=== PATIENT | female | born 1950 | race Caucasian/White ===

== ENCOUNTER 2019-03-10 09:16 | Emergency (ER) | payer MEDICARE ==
[~2019-03-10] VITALS: Ht 167.6 cm; Wt 133.8 kg
[~2019-03-10 09:16] MED LIST: ASPIRIN EC325 MG PO; BACTRIM DS TAB1 EACH PO; CRESTOR10 MG PO; FLEXERIL10 MG PO; NORCO 5-325 TA1 EACH PO; OCUVITE TABLET1 EAC1 PO; OXYBUTYNIN CHLOR5 MG PO; RESTASIS1 DROP OD; VITAMIN C500 M1 PO
[2019-03-10] MEDS ORDERED: DOXYCYCLINE HY100 M3 PO (09:31)
[2019-03-10] MEDS ORDERED: BENZONATATE100 MG PO (09:31)
[2019-03-10] MEDS ORDERED: PREDNISONE20 MG PO (09:32)
[2019-03-10] MEDS ORDERED: ADVAIR HFA 45-212 GM INH (09:32)
--- NOTE | 2019-03-12 08:44 | CONS ---
[facility] [address], [place] [address] Signed DATE OF CONSULTATION: 03/10/2019 REQUESTING PHYSICIAN: Maurilio Larson MD PROBLEM: Painful supraumbilical hernia. HISTORY OF PRESENT ILLNESS: This morbidly obese 69-year-old white woman has had an upper respiratory infection for greater than a week. In the past few days, she has been treated locally with assistance of doxycycline, a bronchodilator, albuterol, and other measures, which have enabled her to finally stop having her perpetual coughing and straining. This morning, she awakened with pain in the supraumbilical area, found to have a subtle lump in the area. She presented to the emergency room and she was evaluated by Dr. Larson. Dr. Larsno recognized a supraumbilical hernia. It was locally tender to touch. The patient requested my evaluation as I am familiar with her in the past, though I am not on-call for the emergency room. A CT scan was performed confirming herniated omental tissue in the subcutaneous space without worsening with Valsalva maneuver. It is uncertain on Dr. Larson's exam whether the abnormality could be reduced or not. As it turns out, she has had a series of CT scans of the abdomen over time, last noted locally in 2017. This showed a hernia in that area at that time. The patient is being followed by CT scan surveillance for a splenic artery aneurysm, which has been noted to be less than 2 cm. She was unaware of the hernia that has been previously seen in the past. Additionally noted was an ill-defined hypoattenuating lesion of the right lobe of the liver measuring 3.1 cm in diameter, similar to a 2007 exam, most consistent with hemangioma. The hernia evaluated today shows a neck of approximately 13 mm and hernia sac of 26 mm x 32 mm. The patient's persistent coughing is improved only in the past 24 hours and may likely have been contributory to her exacerbation of symptomatic hernia at this time. REVIEW OF SYSTEMS: She denies any nausea or vomiting. Her cough is now improved. Last night, she slept well for the first time in many days apparently. This was on the regimen of bronchodilator therapy, doxycycline and prednisone orally administered. She has had no diarrhea or constipation. Electronically Signed By: YARED FRIEDMAN MD 03/12/19 0844 PATIENT NAME: SHERICE GARZA CONSULTATION DATE OF : 46 REPORT #: [id number] PHYSICIAN: YARED FRIEDMAN MD PCP: YORDY NEVILLE MD REPORT IS CONFIDENTIAL AND NOT TO BE RELEASED WITHOUT AUTHORIZATION [facility] [address], [place] [address] Signed SOCIAL HISTORY: She is . She lives in [place]. She has grown sons. PHYSICAL EXAMINATION: GENERAL: An obese white woman who does not look systemically toxic in any way. NECK: Trachea is midline. HEENT: Mucous membranes are moist. She is having some ice chips currently. CHEST: Shows no sign of cough during my evaluation and examination over 15-20 minutes. She has no wheezing. ABDOMEN: Quite markedly obese. Palpation of the supraumbilical area demonstrates a subcutaneous soft tissue mass, which is tender but inconsistent with herniated fat, but which reduces with manipulation. Once reduced, there is less tenderness. EXTREMITIES: Show no clubbing, cyanosis, or edema. She has some bruising on her right side and right leg related to her recent fall during a snowstorm now passed. ASSESSMENT: The hernia she has been present for a long time. Likely, it was worsened with her chronic and persistent coughing from an upper respiratory infection. She is resolving the upper respiratory infection at this time. The hernia reduces upon examination, though it is somewhat tender to do so. Under the circumstances of her obesity, her upper respiratory infection and so forth, I believe it is safe and most appropriate to see her back in my office on Friday (today is Friday). As long as she is improving from a respiratory standpoint, operation next week likely would be well-tolerated without increased risk of pneumonia development from the general anesthetic as well as less chance of persistent coughing postop, which would compromise the hernia repair. I have given her my cell phone number to call at any time if her symptoms should become intolerable, worsen, or other issues should intervene. She agrees to do so. An appointment is scheduled for her at 1115 this Friday. I reviewed this with Dr. Larson in detail who concurs. I advised her to use Motrin and Tylenol for pain in the near term and again to call me if things should worsen or certainly if she should develop nausea, vomiting, or other issues. MD TABITHA Anne/BRADLEY /[id number] Electronically Signed By: YARED FRIEDMAN MD 03/12/19 0844 PATIENT NAME: SHERICE GARZA CONSULTATION DATE OF : 46 REPORT #: [id number] PHYSICIAN: YARED FRIEDMAN MD PCP: YORDY NEVILLE MD REPORT IS CONFIDENTIAL AND NOT TO BE RELEASED WITHOUT AUTHORIZATION [facility] [address] [place] [address] Signed cc: MD Yordy Paul MD Copies: MAURILIO LARSON MD, LAURI MD ~ Electronically Signed By: YARED FRIEDMAN MD 03/12/19 0844 PATIENT NAME: SHERICE GARZA CONSULTATION DATE OF : 46 REPORT #: [id number] PHYSICIAN: YARED FRIEDMAN MD PCP: YORDY NEVILLE MD REPORT IS CONFIDENTIAL AND NOT TO BE RELEASED WITHOUT AUTHORIZATION
== END 2019-03-10 14:25 | disposition home or self-care (01) ==
LOC: ED 09:16
DX: K42.9 Umbilical hernia without obstruction or gangrene (principal); Z88.0 Allergy status to penicillin; Z88.1 Allergy status to other antibiotic agents; Z79.899 Other long term (current) drug therapy; Z79.52 Long term (current) use of systemic steroids; Z79.82 Long term (current) use of aspirin
CPT/HCPCS: 74177; 80053; 83690; 85025; 96360; 99284-25; J7030; Q9967

== ENCOUNTER 2020-09-18 09:08 | Emergency (ER) | payer MEDICARE, OTHER ==
[~2020-09-18] VITALS: Ht 167.6 cm; Wt 133.8 kg
[~2020-09-18 09:08] MED LIST changes: +ADVAIR HFA 45-212 GM INH; +BENZONATATE100 MG PO; +DOXYCYCLINE HY100 M3 PO; +PREDNISONE20 MG PO; -RESTASIS1 DROP OD; +RESTASIS1 DROP OU
[2020-09-18] MEDS ORDERED: CICLOPIROX6.6 ML TOP (09:38)
[2020-09-20] MEDS ORDERED: EMERGEN-C 500500 MG PO (11:03)
[2020-09-20] MEDS ORDERED: OSTERA TABLET1 EACH PO (11:03)
== END 2020-09-18 10:19 | disposition home or self-care (01) ==
LOC: ED 09:08
DX: K42.9 Umbilical hernia without obstruction or gangrene (principal); Z88.0 Allergy status to penicillin; Z88.1 Allergy status to other antibiotic agents; Z79.899 Other long term (current) drug therapy; Z79.82 Long term (current) use of aspirin
CPT/HCPCS: 99283

== ENCOUNTER 2020-09-22 06:20 | Day surgery (SDC) | payer MEDICARE, OTHER ==
[~2020-09-22] VITALS: Ht 167.6 cm; Wt 118.2 kg
[~2020-09-22 06:20] MED LIST changes: +CICLOPIROX6.6 ML TOP; +EMERGEN-C 500500 MG PO; +OSTERA TABLET1 EACH PO
--- NOTE | 2020-09-22 08:54 | NUR ---
09/22/20 0854 Carolyne Trent 0897 PT ARRIVED TO PACU ON 10L VIA MASK, PT WAKES TO TACTILE STIMULI AND RESP EVEN AND UNLABORED. VSS.
[2020-09-22] MEDS ORDERED: OXYCODON-ACETA1 EAC2 PO (09:14)
[2020-09-22] MEDS ORDERED: IBUPROFEN600 MG PO (09:14)
[2020-09-22] MEDS ORDERED: ACETAMINOPHEN500 MG PO (09:14)
--- NOTE | 2020-09-22 10:13 | NUR ---
0948: PT RETURNS TO UNIT VIA STRETCHER. AWAKE AND ORIENTED ON ARRIVAL. VSS, RESP EVEN AND UNLABORED. O2 SAT STABLE >99% ON 2L VIA NC. OXYGEN TURNED OFF AND NC REMOVED. 02 SATS REMAIN STABLE >99% ON RA. IV CONVERTED TO SL. DRESSING C/D/I, ABD BINDER IN PLACE ORDERED. PT WITH REQUEST TO USE BR. DANGLES AT THE BEDSIDE, HOLLEY WELL. DENIES DIZZINESS AND SOB. AMBULATES TO BR WITH STANDBY ASSIST FROM THIS RN. STEADY GAIT. SUCCESSFUL POSTOP VOID 300ML CLEAR YELLOW URINE. BACK TO ROOM 3. SCDS IN PLACE. ICE WATER AND CRACKERS PROVIDED. DENIES NAUSEA AT THIS TIME. NO NEEDS VOICED, CALL LIGHT WITHIN REACH
--- NOTE | 2020-09-22 11:18 | NUR ---
1045: PT AWAKE AND ALERT AND CONVERSING WITH FRIEND. COMFORTABLE, DENIES NAUSEA AT THIS TIME. VSS, RESP EVEN AND UNLABORED. DRESSING REMAINS C/D/I, ABD BINDER IN PLACE. SCDS REMOVED. PT UP TO BR INDEPENDENTLY FOR SECOND POST OP VOID. STEADY GAIT, HOLLEY WELL. BACK TO ROM 3 AND DRESSES INDEPENDENTLY. SL REMOVED WITH CATH TIP INTACT AND PRESSURE APPLIED TO SITE, WNL. 1100: D/C INSTRUCTIONS PROVIDED AND DISCUSSED ORDERED. PT VOICES UNDERSTANDING AND DENIES QUESTIONS AND CONCERNS AT THIS TIME. WHEELED OFF OF UNIT IN WC. TRANSFERS INTO VEHICLE INDEPENDENTLY. RESP EVEN AND UNLABORED, NO PHYSICAL S/S OF DISTRESS AT THIS TIME
--- NOTE | 2020-09-22 12:17 | OR ---
[facility] [address], [place] [address] Signed DATE OF OPERATION: 09/22/2020 SURGEON: Yared Friedman MD PREOPERATIVE DIAGNOSES: 1. Umbilical hernia. 2. Morbid obesity. POSTOPERATIVE DIAGNOSES: 1. Umbilical hernia. 2. Morbid obesity. PROCEDURE: 1. Repair of umbilical hernia. 2. Implantation of Prolene mesh underlay technique. ANESTHESIA: General endotracheal, Yared Concepcion CRNA and local 10 mL of 0.25% Marcaine with epinephrine. 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 Yordy Fernandez in [place]. She has had longstanding symptomatic umbilical hernia as demonstrated by clinical exam and by imaging study including CT scan. This has been noted since at least May of 2019. Various issues including the global pandemic to proceed with repair. Additionally, she has had some right lower abdominal pain for which she thinks she has a hernia in that area. On that basis, a CT scan was recently performed confirming no evidence of hernia in the right lower quadrant, only the supraumbilical or umbilical hernia itself. She is now admitted to undergo repair of the hernia. She understands the risks of bleeding, infection, recurrence and so on. FINDINGS: The fascial defect approximately 3 cm was noted. There was no sign of hollow viscus incarceration. This was an umbilical hernia. Reduction of the hernia was undertaken and the properitoneal space developed and implantation of Prolene mesh with a 4 cm overlap was undertaken with fascial reapproximation transversely. DESCRIPTION OF PROCEDURE: The patient was brought to the operating room, given a general endotracheal anesthetic. Preoperative antibiotic Ancef was given. Sequential compressive stockings were used. Electronically Signed By: YARED FRIEDMAN MD 09/22/20 1217 PATIENT NAME: SHERICE GARZA OPERATIVE REPORT DATE OF : 46 REPORT #: [id number] PHYSICIAN: YARED FRIEDMAN MD PCP: YORDY FERNANDEZ MD REPORT IS CONFIDENTIAL AND NOT TO BE RELEASED WITHOUT AUTHORIZATION [facility] [address], [place] [address] Signed The abdomen was prepared with a chlorhexidine solution and draped sterilely. A supraumbilical incision was made, dissection was carried through the thick abdominal pannus ultimately encountering the hernia itself, which was clearly separate from the surrounding soft tissue. This was dissected free from the fascial edge. Fascia was somewhat attenuated, but the fascial defect was quite clearly evident. The fascia was grasped and the hernia sac freed from the depths of the umbilical dermis and found to have no sign of hollow viscus. It was replaced into the peritoneal space. The properitoneal space was developed circumferentially with a blunt and electrocautery dissection, approximately 4 cm in length. A segment of Prolene mesh was cut to a circular configuration and secured in the properitoneal space with interrupted 0 Prolene suture. The fascia was reapproximated with interrupted 0 Prolene in a vertical mattress configuration. A 10 mL of 0.25% Marcaine with epinephrine was injected locally. Mary Ann layer was reapproximated with interrupted 2-0 Vicryl and skin was closed with running subcuticular 3-0 Vicryl. Steri-Strips were applied as was an Acticoat silver sponge dressing. She was ultimately extubated and transferred to the recovery room in good condition and suffered no complication. Sponge, needle, and counts were reported as correct x3. MD TABITHA Anne/MODL /[id number] cc: Yordy Fernandez MD Copies: YORDY FERNANDEZ MD ~ Electronically Signed By: YARED FRIEDMAN MD 09/22/20 1217 PATIENT NAME: SHERICE GARZA OPERATIVE REPORT DATE OF : 46 REPORT #: [id number] PHYSICIAN: YARED FRIEDMAN MD PCP: YORDY FERNANDEZ MD REPORT IS CONFIDENTIAL AND NOT TO BE RELEASED WITHOUT AUTHORIZATION
== END 2020-09-22 11:00 | disposition home or self-care (01) ==
LOC: DS 06:20 → EDSTATUS 06:45 → LAB 06:45 → DS 06:45
PROVIDERS: ATTEND Surgery
PROC: 0WUF0JZ Supplement Abdominal Wall with Synthetic Substitute, Open Approach (ICD-10-PCS; principal; 2020-09-22 06:45)
DX: K42.9 Umbilical hernia without obstruction or gangrene (principal); E66.01 Morbid (severe) obesity due to excess calories; Z68.41 Body mass index [BMI] 40.0-44.9, adult; Z88.1 Allergy status to other antibiotic agents; Z88.0 Allergy status to penicillin; Z91.09 Other allergy status, other than to drugs and biological substances
CPT/HCPCS: 00750; C1781; J0330; J0690; J1100; J1644; J1885; J2250; J2405; J2704; J2765; J3010; J7121

== ENCOUNTER 2021-04-11 19:39 | Emergency (ER) | payer MEDICARE, OTHER ==
[~2021-04-11] VITALS: Ht 167.6 cm; Wt 104.3 kg
[~2021-04-11 19:39] MED LIST changes: +ACETAMINOPHEN500 MG PO; +IBUPROFEN600 MG PO; +OXYCODON-ACETA1 EAC2 PO
--- NOTE | 2021-04-12 07:23 | EKG ---
[facility] [address] [facility] [place] [address] Signed Normal sinus rhythm Right bundle branch block Possible Inferior infarct (cited on or before 10-SEP-2018) Abnormal ECG When compared with ECG of 20-SEP-2020 11:15, premature ventricular complexes are no longer present Confirmed by ARLETTE DIAMOND MD ([id number]) on 04/12/2021 7:23:00 AM Electronically Signed By: ARLETTE DIAMOND MD 04/12/21 0723 PATIENT NAME: SHERICE GARZA Electrocardiogram DATE OF : 46 PHYSICIAN: ARLETTE DIAMOND MD REPORT #: [id number] REPORT IS CONFIDENTIAL AND NOT TO BE RELEASED WITHOUT AUTHORIZATION
== END 2021-04-11 22:21 | disposition home or self-care (01) ==
LOC: ED 19:39
DX: R00.2 Palpitations (principal); E78.5 Hyperlipidemia, unspecified; M19.90 Unspecified osteoarthritis, unspecified site; Z88.0 Allergy status to penicillin; Z88.1 Allergy status to other antibiotic agents; Z79.899 Other long term (current) drug therapy
CPT/HCPCS: 36415; 71045; 80053; 83735; 84484; 85025; 93005; 93010; 99285-25

== ENCOUNTER 2021-12-12 01:49 | Emergency (ER) | payer MEDICARE, OTHER ==
[~2021-12-12] VITALS: Ht 167.6 cm; Wt 112.0 kg
[~2021-12-12 01:49] MED LIST changes: +IRON325 M1 PO; +MULTI-DAY PLUS1 EAC1 PO; +PRESERVISION A1 EAC3 PO
[2021-12-12] MEDS ORDERED: BACTRIM DS TAB1 EACH PO (02:25)
== END 2021-12-12 02:40 | disposition home or self-care (01) ==
LOC: ED 01:49
DX: L03.116 Cellulitis of left lower limb (principal); M19.90 Unspecified osteoarthritis, unspecified site; Z88.0 Allergy status to penicillin; Z88.1 Allergy status to other antibiotic agents; Z79.899 Other long term (current) drug therapy
CPT/HCPCS: 36415; 85025; 99283; A9270

== ENCOUNTER 2022-03-16 23:25 | Emergency (ER) | payer MEDICARE, OTHER ==
[~2022-03-16] VITALS: Ht 167.6 cm; Wt 113.4 kg
[~2022-03-16 23:25] MED LIST changes: +CELECOXIB200 MG PO; +COQ-10100 MG PO; +DOXYCYCLINE HY100 MG PO; +GABAPENTIN300 MG PO; +IRON18 MG PO; +METRONIDAZOLE45 GM TOP; +OXYCODONE HCL5 MG PO; +RESTASIS MULTI5.5 ML OU; -RESTASIS1 DROP OU; +SENNA LAX8.6 MG PO; +XARELTO10 MG PO
--- OUTSIDE RECORDS SUMMARY | 2022-03-16 23:29 | XMS ---
PreManage Notification: SHERICE GARZA Security Piler Events No recent Security Events currently on file CRITERIA MET - [facility] CARE PROVIDERS LILY GRANADOS Nurse Practitioner: Family [facility]: [facility] Unknown Belen has no Care Guidelines for this patient. Cassy VISIT COUNT (12 MO.) Madina Joaquin TOTAL 3 NOTE: Visits indicate total known visits. ED/UCC VISIT TRACKING (12 MO.) 03/16/2022 23:27 [facility] [place] TYPE: Emergency COMPLAINT: - POST SURGERY ISSUES 12/12/2021 01:50 [facility] [place] TYPE: Emergency COMPLAINT: - LEFT ANKLE PAIN/ SWELLING DIAGNOSES: - Allergy status to penicillin - Other senior living (current) drug therapy - Unspecified osteoarthritis, unspecified site - Cellulitis of left lower limb - Allergy status to other antibiotic agents 04/11/2021 19:40 [facility] [place] TYPE: Emergency COMPLAINT: - HEART PALPATATIONS DIAGNOSES: - Palpitations - Hyperlipidemia, unspecified - Unspecified osteoarthritis, unspecified site - Allergy status to penicillin - 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
== END 2022-03-17 01:52 | disposition home or self-care (01) ==
LOC: ED 23:25
DX: M96.840 Postprocedural hematoma of a musculoskeletal structure following a musculoskeletal system procedure (principal); E78.5 Hyperlipidemia, unspecified; Z88.0 Allergy status to penicillin; Z88.1 Allergy status to other antibiotic agents; Z79.899 Other long term (current) drug therapy; Z79.01 Long term (current) use of anticoagulants
CPT/HCPCS: 36415; 85379; 93971; 99284-25

== ENCOUNTER 2022-09-02 19:57 | Inpatient (IN) | payer MEDICARE, OTHER ==
[~2022-09-02] VITALS: Ht 167.6 cm; Wt 115.7 kg
--- OUTSIDE RECORDS SUMMARY | ~2022-09-02 | XMS | Continuity of Care Document ---
Demographics + + + | Address | [address] | | | [place] [address] | + + + | Preferred Language | Unknown | + + + | Marital Status | | + + + | Christian Affiliation | Unknown | + + + | Race | White | + + + | Ethnic Group | Not or | + + + Author + + + | Author | [facility] | + + + | Organization | [facility] | + + + | Address | [address] | | | [place] [address] | + + + | Phone | | + + + Care Team Providers + + + + | Care Professor Of Sport Management Name | Role | Phone | + + + + Unavailable | Unavailable | + + + + Unavailable | Unavailable | + + + + Unavailable | Unavailable | + + + + Unavailable | Unavailable | + + + + Allergies and Intolerances + + + + + + | date | description | facility | reaction | severity | + + + + + + | (no date) | Urticaria | [facility] | (no reaction) | (no severity) | | [facility] | | | + + + + + + | (no date) | Azithromycin | [facility] | (no reaction) | (no severity) | | | [facility] | | | + + + + + + | (no date) | Amoxicillin | [facility] | (no reaction) | (no severity) | | | [facility] | | | + + + + + + | (no date) | Azithromycin | [facility] | (no reaction) | (no severity) | | | [facility] | | | + + + + + + | (no date) | Penicillin | [facility] | (no reaction) | (no severity) | | | [facility] | | | + + + + + + | (no date) | Amoxicillin | [facility] | (no reaction) | (no severity) | | | [facility] | | | + + + + + + | (no date) | Penicillin | [facility] | (no reaction) | (no severity) | | | [facility] | | | + + + + + + | (no date) | Amoxicillin | [facility] | (no reaction) | (no severity) | | | [facility] | | | + + + + + + | (no date) | Penicillins | [facility] | (no reaction) | (no severity) | + + + + + + | (no date) | azithromycin | [facility] | (no reaction) | (no severity) | + + + + + + | (no date) | amoxicillin | [facility] | (no reaction) | (no severity) | + + + + + + | (no date) | Azithromycin | [facility] | (no reaction) | (no severity) | | | [facility] | | | + + + + + + | (no date) | Penicillin | [facility] | (no reaction) | (no severity) | | | [facility] | | | + + + + + + | (no date) | Penicillin | [facility] | (no reaction) | (no severity) | | | [facility] | | | + + + + + + Encounters No information. Functional Status No information. Immunizations No information. Medications + + + + | date | description | facility | + + + + | 2022-03-11 00:00 | OXYCODONE HCL | [facility] | + + + + | 2022-03-11 00:00 | OXYCODONE HCL | [facility] | + + + + | 2022-03-11 00:00 | RIVAROXABAN | [facility] | + + + + | 2022-03-11 00:00 | RIVAROXABAN | [facility] | + + + + | 2022-03-11 00:00 | DOXYCYCLINE HYCLATE | [facility] | + + + + | 2022-03-17 00:00 | DOXYCYCLINE HYCLATE | [facility] | + + + + | 2021-12-12 00:00 | DOXYCYCLINE HYCLATE | [facility] | + + + + | 2022-03-11 00:00 | DOXYCYCLINE HYCLATE | [facility] | + + + + | 2022-03-17 00:00 | DOXYCYCLINE HYCLATE | [facility] | + + + + | 2021-12-12 00:00 | BENZONATATE | [facility] | + + + + | 2022-03-11 00:00 | BENZONATATE | [facility] | + + + + | 2022-03-17 00:00 | BENZONATATE | [facility] | + + + + | 2020-09-22 00:00 | IBUPROFEN | [facility] | + + + + | 2020-09-22 00:00 | IBUPROFEN | [facility] | + + + + | 2020-09-22 00:00 | ACETAMINOPHEN | [facility] | + + + + | 2020-09-22 00:00 | ACETAMINOPHEN | [facility] | + + + + | 2022-03-11 00:00 | CELECOXIB | [facility] | + + + + | 2022-03-11 00:00 | CELECOXIB | [facility] | + + + + | 2022-03-11 00:00 | UBIDECARENONE | [facility] | + + + + | 2022-03-17 00:00 | UBIDECARENONE | [facility] | + + + + | 2021-12-12 00:00 | CHICO ANDERSON | [facility] | | | 0.05% | | + + + + | 2021-12-12 00:00 | ASCORBIC ACID | [facility] | + + + + | 2022-03-11 00:00 | ASCORBIC ACID | [facility] | + + + + | 2022-03-17 00:00 | ASCORBIC ACID | [facility] | + + + + | 2021-12-12 00:00 | CICLOPIROX | [facility] | + + + + | 2022-03-11 00:00 | CICLOPIROX | [facility] | + + + + | 2022-03-17 00:00 | CICLOPIROX | [facility] | + + + + | 2022-03-11 00:00 | GABAPENTIN | [facility] | + + + + | 2022-03-11 00:00 | GABAPENTIN | [facility] | + + + + | 2022-03-11 00:00 | METRONIDAZOLE | [facility] | + + + + | 2022-03-17 00:00 | METRONIDAZOLE | [facility] | + + + + | 2021-12-12 00:00 | predniSONE | [facility] | + + + + | 2022-03-11 00:00 | predniSONE | [facility] | + + + + | 2022-03-17 00:00 | predniSONE | [facility] | + + + + | 2022-03-11 00:00 | SENNOSIDES | [facility] | + + + + | 2022-03-11 00:00 | SENNOSIDES | [facility] | + + + + | 2021-12-12 00:00 | ASPIRIN | [facility] | + + + + | 2022-03-11 00:00 | ASPIRIN | [facility] | + + + + | 2022-03-17 00:00 | ASPIRIN | [facility] | + + + + | 2022-03-11 00:00 | Cyclosporine | [facility] | + + + + | 2022-03-17 00:00 | Cyclosporine | [facility] | + + + + | 2021-12-12 00:00 | VIT D3 & K/BERBERINE | [facility] | | | HCL/HOPS | | + + + + | 2022-03-11 00:00 | VIT D3 & K/BERBERINE | [facility] | | | HCL/HOPS | | + + + + | 2022-03-17 00:00 | VIT D3 & K/BERBERINE | [facility] | | | HCL/HOPS | | + + + + | 2016-01-04 00:00 | | [facility] | | | SULFAMETHOXAZOLE/TRIMETHOPR | | | | IM DS | | + + + + | 2016-01-04 00:00 | | [facility] | | | SULFAMETHOXAZOLE/TRIMETHOPR | | | | IM DS | | + + + + | 2021-12-12 00:00 | | [facility] | | | SULFAMETHOXAZOLE/TRIMETHOPR | | | | IM DS | | + + + + | 2021-12-12 00:00 | | [facility] | | | SULFAMETHOXAZOLE/TRIMETHOPR | | | | IM DS | | + + + + | 2021-12-12 00:00 | ROSUVASTATIN CALCIUM | [facility] | + + + + | 2022-03-11 00:00 | ROSUVASTATIN CALCIUM | [facility] | + + + + | 2022-03-17 00:00 | ROSUVASTATIN CALCIUM | [facility] | + + + + | 2021-12-12 00:00 | OXYBUTYNIN CHLORIDE | [facility] | + + + + | 2022-03-11 00:00 | OXYBUTYNIN CHLORIDE | [facility] | + + + + | 2022-03-17 00:00 | OXYBUTYNIN CHLORIDE | [facility] | + + + + | 2021-12-12 00:00 | Bety SPENCER & | [facility] | | | E/LUTEIN/MINERALS | | + + + + | 2022-03-11 00:00 | Bety SPENCER & | [facility] | | | E/LUTEIN/MINERALS | | + + + + | 2022-03-17 00:00 | Bety SPENCER & | [facility] | | | E/LUTEIN/MINERALS | | + + + + | 2021-12-12 00:00 | FLUTICASONE/SALMETEROL | [facility] | + + + + | 2022-03-11 00:00 | FLUTICASONE/SALMETEROL | [facility] | + + + + | 2022-03-17 00:00 | FLUTICASONE/SALMETEROL | [facility] | + + + + Problems + + + + | date | description | facility | + + + + | 2016-01-04 00:00 | Urinary tract infection | [facility] | + + + + | 2016-01-04 00:00 | Urinary tract infection | [facility] | + + + + | 2016-08-05 00:00 | Flank pain | [facility] | + + + + | 2016-08-05 00:00 | Flank pain | [facility] | + + + + | 2021-04-11 00:00 | Palpitations | [facility] | + + + + | 2021-04-11 00:00 | Palpitations | [facility] | + + + + | 2021-04-11 19:40 | HYPERLIPIDEMIA, | [facility] | | | UNSPECIFIED | | + + + + | 2021-04-11 19:40 | UNSPECIFIED | [facility] | | | OSTEOARTHRITIS, UNSPECIFIED | | | | SITE | | + + + + | 2021-04-11 19:40 | PALPITATIONS | [facility] | + + + + | 2021-04-11 19:40 | OTHER GENERATION ENGINEER (CURRENT) | [facility] | | | DRUG THERAPY | | + + + + | 2021-04-11 19:40 | ALLERGY STATUS TO | [facility] | | | PENICILLIN | | + + + + | 2021-04-11 19:40 | ALLERGY STATUS TO OTHER | [facility] | | | ANTIBIOTIC AGENTS STATUS | | + + + + | 2021-07-02 07:40 | PAROXYSMAL TACHYCARDIA, | [facility] | | | UNSPECIFIED | | + + + + | 2021-07-02 07:40 | TACHYCARDIA, UNSPECIFIED | [facility] | + + + + | 2021-07-02 07:40 | PALPITATIONS | [facility] | + + + + | 2021-07-02 07:40 | SHORTNESS OF BREATH | [facility] | + + + + | 2021-08-14 12:43 | UNILATERAL PRIMARY | [facility] | | | OSTEOARTHRITIS, LEFT KNEE | | + + + + | 2021-09-04 08:44 | UNILATERAL PRIMARY | [facility] | | | OSTEOARTHRITIS, LEFT HIP | | + + + + | 2021-09-04 08:44 | ENCOUNTER FOR OTHER | [facility] | | | PREPROCEDURAL EXAMINATION | | + + + + | 2021-10-08 15:37 | IMMUNE THROMBOCYTOPENIC | [facility] | | | PURPURA | | + + + + | 2021-12-12 00:00 | Cellulitis | [facility] | + + + + | 2021-12-12 00:00 | Cellulitis | [facility] | + + + + | 2021-12-12 01:50 | CELLULITIS OF LEFT LOWER | [facility] | | | LIMB | | + + + + | 2021-12-12 01:50 | UNSPECIFIED | [facility] | | | OSTEOARTHRITIS, UNSPECIFIED | | | | SITE | | + + + + | 2021-12-12 01:50 | OTHER GENERATION ENGINEER (CURRENT) | [facility] | | | DRUG THERAPY | | + + + + | 2021-12-12 01:50 | ALLERGY STATUS TO | [facility] | | | PENICILLIN | | + + + + | 2021-12-12 01:50 | ALLERGY STATUS TO OTHER | [facility] | | | ANTIBIOTIC AGENTS STATUS | | + + + + | 2022-02-26 10:25 | UNILATERAL PRIMARY | [facility] | | | OSTEOARTHRITIS, LEFT KNEE | | + + + + | 2022-03-07 00:01 | UNILATERAL PRIMARY | [facility] | | | OSTEOARTHRITIS, LEFT KNEE | | + + + + | 2022-03-07 00:01 | ENCOUNTER FOR OTHER | [facility] | | | PREPROCEDURAL EXAMINATION | | + + + + | 2022-03-11 08:30 | UNILATERAL PRIMARY | [facility] | | | OSTEOARTHRITIS, LEFT KNEE | | + + + + | 2022-03-11 08:30 | OSTEOPHYTE, LEFT KNEE | [facility] | + + + + | 2022-03-11 08:30 | 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 | | + + + + | 2022-03-11 08:30 | ALLERGY STATUS TO | [facility] | | | PENICILLIN | | + + + + | 2022-03-11 08:30 | ALLERGY STATUS TO OTHER | [facility] | | | ANTIBIOTIC AGENTS STATUS | | + + + + | 2022-03-16 23:27 | HYPERLIPIDEMIA, | [facility] | | | UNSPECIFIED | | + + + + | 2022-03-16 23:27 | POSTPROC HEMATOMA OF A MS | [facility] | | | STRUCTURE FOL A MS SYS P | | + + + + | 2022-03-16 23:27 | LOCALIZED SWELLING, MASS | [facility] | | | AND LUMP, LEFT LOWER LIMB | | + + + + | 2022-03-16 23:27 | GENERATION ENGINEER (CURRENT) USE OF | [facility] | | | ANTICOAGULANTS | | + + + + | 2022-03-16 23:27 | OTHER GENERATION ENGINEER (CURRENT) | [facility] | | | DRUG THERAPY | | + + + + | 2022-03-16 23:27 | ALLERGY STATUS TO | [facility] | | | PENICILLIN | | + + + + | 2022-03-16 23:27 | ALLERGY STATUS TO OTHER | [facility] | | | ANTIBIOTIC AGENTS STATUS | | + + + + | 2022-03-17 00:00 | Hematoma | [facility] | + + + + | 2022-03-19 13:00 | AFTERCARE FOLLOWING JOINT | [facility] | | | REPLACEMENT SURGERY | | + + + + | 2022-03-19 13:00 | 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 | | + + + + | 2022-04-10 15:56 | AFTERCARE FOLLOWING JOINT | [facility] | | | REPLACEMENT SURGERY | | + + + + | 2022-04-10 15:56 | 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 Results/Labs +--------+--------+ +---------+--------+---------+ | test | date | facility | value | unit | notes | +--------+--------+ +---------+--------+---------+ + + | Result panel 1 | + + + + + +-------+ + + | | 2021-12-12 | [facility] | 6.6 | (missing) | (missing) | | (unavailable | 02:10 | [facility] | | | | + + + +-------+ + + + + | Result panel 2 | + + + + + +--------+ + + | | 2021-12-12 | [facility] | 4.54 | (missing) | (missing) | | (unavailable | 02:10 | [facility] | | | | + + + +--------+ + + + + | Result panel 3 | + + + + + +--------+ + + | | 2021-12-12 | [facility] | 12.7 | (missing) | (missing) | | (unavailable | 02:10 | [facility] | | | | + + + +--------+ + + + + | Result panel 4 | + + + + + +--------+ + + | | 2021-12-12 | [facility] | 39.1 | (missing) | (missing) | | (unavailable | 02:10 | [facility] | | | | + + + +--------+ + + + + | Result panel 5 | + + + + + +--------+ + + | | 2021-12-12 | [facility] | 86.1 | (missing) | (missing) | | (unavailable | 02:10 | [facility] | | | | + + + +--------+ + + + + | Result panel 6 | + + + + + +--------+ + + | | 2021-12-12 | [facility] | 27.9 | (missing) | (missing) | | (unavailable | 02:10 | [facility] | | | | + + + +--------+ + + + + | Result panel 7 | + + + + + +--------+ + + | | 2021-12-12 | [facility] | 32.4 | (missing) | (missing) | | (unavailable | 02:10 | [facility] | | | | + + + +--------+ + + + + | Result panel 8 | + + + + + +--------+ + + | | 2021-12-12 | [facility] | 15.0 | (missing) | (missing) | | (unavailable | 02:10 | [facility] | | | | + + + +--------+ + + + + | Result panel 9 | + + + + + +-------+ + + | | 2021-12-12 | [facility] | 138 | (missing) | (missing) | | (unavailable | 02:10 | [facility] | | | | + + + +-------+ + + + + | Result panel 10 | + + + + + +--------+ + + | | 2021-12-12 | [facility] | 66.4 | (missing) | (missing) | | (unavailable | 02:10 | [facility] | | | | + + + +--------+ + + + + | Result panel 11 | + + + + + +--------+ + + | | 2021-12-12 | [facility] | 21.2 | (missing) | (missing) | | (unavailable | 02:10 | [facility] | | | | + + + +--------+ + + + + | Result panel 12 | + + + + + +--------+ + + | | 2021-12-12 | [facility] | 11.2 | (missing) | (missing) | | (unavailable | 02:10 | [facility] | | | | + + + +--------+ + + + + | Result panel 13 | + + + + + +-------+ + + | | 2021-12-12 | [facility] | 0.6 | (missing) | (missing) | | (unavailable | 02:10 | [facility] | | | | + + + +-------+ + + + + | Result panel 14 | + + + + + +-------+ + + | | 2021-12-12 | [facility] | 0.6 | (missing) | (missing) | | (unavailable | 02:10 | [facility] | | | | + + + +-------+ + + + + | Result panel 15 | + + + + + +-------+ + + | | 2022-03-11 | [facility] | 3.9 | (missing) | (missing) | | (unavailable | 09:30:08 | [facility] | | | | + + + +-------+ + + + + | Result panel 16 | + + + + + +--------+ + + | | 2022-03-11 | [facility] | 67.0 | (missing) | (missing) | | (unavailable | 09:30:08 | [facility] | | | | + + + +--------+ + + + + | Result panel 17 | + + + + + +--------+ + + | | 2022-03-11 | [facility] | 22.8 | (missing) | (missing) | | (unavailable | 09:30:08 | [facility] | | | | + + + +--------+ + + + + | Result panel 18 | + + + + + +-------+ + + | | 2022-03-11 | [facility] | 8.7 | (missing) | (missing) | | (unavailable | 09:30:08 | [facility] | | | | + + + +-------+ + + + + | Result panel 19 | + + + + + +-------+ + + | | 2022-03-11 | [facility] | 1.0 | (missing) | (missing) | | (unavailable | 09:30:08 | [facility] | | | | + + + +-------+ + + + + | Result panel 20 | + + + + + +-------+ + + | | 2022-03-11 | [facility] | 0.5 | (missing) | (missing) | | (unavailable | ::08 | [facility] | | | | + + + +-------+ + + + + | Result panel 21 | + + + + + +-------+ + + | | 2022-03-11 | [facility] | 3.9 | (missing) | (missing) | | (unavailable | 09:30:08 | [facility] | | | | + + + +-------+ + + + + | Result panel 22 | + + + + + +--------+ + + | | 2022-03-11 | [facility] | 4.25 | (missing) | (missing) | | (unavailable | ::08 | [facility] | | | | + + + +--------+ + + + + | Result panel 23 | + + + + + +--------+ + + | | 2022-03-11 | [facility] | 12.2 | (missing) | (missing) | | (unavailable | :08 | [facility] | | | | + + + +--------+ + + + + | Result panel 24 | + + + + + +--------+ + + | | 2022-03-11 | [facility] | 35.7 | (missing) | (missing) | | (unavailable | :30:08 | [facility] | | | | + + + +--------+ + + + + | Result panel 25 | + + + + + +--------+ + + | | 2022-03-11 | [facility] | 4.25 | (missing) | (missing) | | (unavailable | :30:08 | [facility] | | | | + + + +--------+ + + + + | Result panel 26 | + + + + + +--------+ + + | | 2022-03-11 | [facility] | 83.9 | (missing) | (missing) | | (unavailable | 09:30:08 | [facility] | | | | + + + +--------+ + + + + | Result panel 27 | + + + + + +--------+ + + | | 2022-03-11 | [facility] | 28.6 | (missing) | (missing) | | (unavailable | 09:30:08 | [facility] | | | | + + + +--------+ + + + + | Result panel 28 | + + + + + +--------+ + + | | 2022-03-11 | [facility] | 34.1 | (missing) | (missing) | | (unavailable | 09:30:08 | [facility] | | | | + + + +--------+ + + + + | Result panel 29 | + + + + + +--------+ + + | | 2022-03-11 | [facility] | 15.2 | (missing) | (missing) | | (unavailable | 30:08 | [facility] | | | | + + + +--------+ + + + + | Result panel 30 | + + + + + +-------+ + + | | 2022-03-11 | [facility] | 247 | (missing) | (missing) | | (unavailable | 09:30:08 | [facility] | | | | + + + +-------+ + + + + | Result panel 31 | + + + + + +--------+ + + | | 2022-03-11 | [facility] | 67.0 | (missing) | (missing) | | (unavailable | 09:30:08 | [facility] | | | | + + + +--------+ + + + + | Result panel 32 | + + + + + +--------+ + + | | 2022-03-11 | [facility] | 22.8 | (missing) | (missing) | | (unavailable | 09:30:08 [facility] | | | | + + + +--------+ + + + + | Result panel 33 | + + + + + +-------+ + + | | 2022-03-11 | [facility] | 8.7 | (missing) | (missing) | | (unavailable | :30:08 | [facility] | | | | + + + +-------+ + + + + | Result panel 34 | + + + + + +-------+ + + | | 2022-03-11 | [facility] | 1.0 | (missing) | (missing) | | (unavailable | 09:30:08 | [facility] | | | | + + + +-------+ + + + + | Result panel 35 | + + + + + +-------+ + + | | 2022-03-11 | [facility] | 0.5 | (missing) | (missing) | | (unavailable | 09:30:08 | [facility] | | | | + + + +-------+ + + + + | Result panel 36 | + + + + + +--------+ + + | | 2022-03-11 | [facility] | 12.2 | (missing) | (missing) | | (unavailable | 09:30:08 | [facility] | | | | + + + +--------+ + + + + | Result panel 37 | + + + + + +--------+ + + | | 2022-03-11 | [facility] | 35.7 | (missing) | (missing) | | (unavailable | 09:30:08 [facility] | | | | + + + +--------+ + + + + | Result panel 38 | + + + + + +--------+ + + | | 2022-03-11 | [facility] | 83.9 | (missing) | (missing) | | (unavailable | 09:30:08 | [facility] | | | | + + + +--------+ + + + + | Result panel 39 | + + + + + +--------+ + + | | 2022-03-11 | [facility] | 28.6 | (missing) | (missing) | | (unavailable | 09:30:08 [facility] | | | | + + + +--------+ + + + + | Result panel 40 | + + + + + +--------+ + + | | 2022-03-11 | [facility] | 34.1 | (missing) | (missing) | | (unavailable | 09:30:08 [facility] | | | | + + + +--------+ + + + + | Result panel 41 | + + + + + +--------+ + + | | 2022-03-11 | [facility] | 15.2 | (missing) | (missing) | | (unavailable | 09:30:08 [facility] | | | | + + + +--------+ + + + + | Result panel 42 | + + + + + +-------+ + + | | 2022-03-11 | [facility] | 247 | (missing) | (missing) | | (unavailable | 09:30:08 [facility] | | | | + + + +-------+ + + + + | Result panel 43 | + + + + + +--------+ + + | | 2022-03-16 | [facility] | 3.11 | (missing) | (missing) | | (unavailable | 23:50:08 | [facility] | | | | + + + +--------+ + + Social History No information. Vital Signs + + + +---------+ | date | measurement | value | units | + + + +---------+ | 2021-12-12 00:00 | BMI | 39.9 | kg/m2 | + + + +---------+ | 2021-12-12 00:00 | BP_diastolic | 70 | mmHg | + + + +---------+ | 2021-12-12 00:00 | BP_systolic | 106 | mmHg | + + + +---------+ | 2021-12-12 00:00 | heart_rate | 100 | /min | + + + +---------+ | 2021-12-12 00:00 | height_metric | 167.64 | cm | + + + +---------+ | 2021-12-12 00:00 | height_standard | 66 | in | + + + +---------+ | 2021-12-12 00:00 | o2_saturation | 98 | % | + + + +---------+ | 2021-12-12 00:00 | respiration_rate | 17 | /min | + + + +---------+ | 2021-12-12 00:00 | temperature_metric | 37.22 | C | | | | | | + + + +---------+ | 2021-12-12 00:00 | | 99 | F | | | temperature_standar | | | | | d | | | + + + +---------+ | 2021-12-12 00:00 | weight_metric | 112 | kg | + + + +---------+ | 2021-12-12 00:00 | weight_standard | 246.92 | lb | + + + +---------+ | 2022-02-26 00:00 | BMI | 40.6 | kg/m2 | + + + +---------+ | 2022-02-26 00:00 | height_metric | 167.64 | cm | + + + +---------+ | 2022-02-26 00:00 | height_standard | 66 | in | + + + +---------+ | 2022-02-26 00:00 | weight_metric | 114 | kg | + + + +---------+ | 2022-02-26 00:00 | weight_standard | 251.33 | lb | + + + +---------+ | 2022-03-11 00:00 | BP_diastolic | 59 | mmHg | + + + +---------+ | 2022-03-11 00:00 | BP_systolic | 117 | mmHg | + + + +---------+ | 2022-03-11 00:00 | heart_rate | 91 | /min | + + + +---------+ | 2022-03-11 00:00 | o2_saturation | 94 | % | + + + +---------+ | 2022-03-11 00:00 | respiration_rate | 18 | /min | + + + +---------+ | 2022-03-11 00:00 | temperature_metric | 36.83 | C | | | | | | + + + +---------+ | 2022-03-11 00:00 | | 98.3 | F | | | temperature_standar | | | | | d | | | + + + +---------+ | 2022-03-16 00:00 | BMI | 40.4 | kg/m2 | + + + +---------+ | 2022-03-16 00:00 | height_metric | 167.64 | cm | + + + +---------+ | 2022-03-16 00:00 | height_standard | 66 | in | + + + +---------+ | 2022-03-16 00:00 | weight_metric | 113.4 | kg | + + + +---------+ | 2022-03-16 00:00 | weight_standard | 250 | lb | + + + +---------+ | 2022-03-17 00:00 | BP_diastolic | 78 | mmHg | + + + +---------+ | 2022-03-17 00:00 | BP_systolic | 130 | mmHg | + + + +---------+ | 2022-03-17 00:00 | heart_rate | 76 | /min | + + + +---------+ | 2022-03-17 00:00 | o2_saturation | 98 | % | + + + +---------+ | 2022-03-17 00:00 | respiration_rate | 16 | /min | + + + +---------+ | 2022-03-17 00:00 | temperature_metric | 36.89 | C | | | | | | + + + +---------+ | 2022-03-17 00:00 | | 98.4 | F | | | temperature_standar | | | | | d | | | + + + +---------+"
--- OUTSIDE RECORDS SUMMARY | ~2022-09-02 | XMS | Continuity of Care Document ---
Demographics + + + | Address | [address] | | | [place] [address] | + + + | Preferred Language | Unknown | + + + | Marital Status | | + + + | Buddhist Affiliation | Unknown | + + + | Race | White | + + + | Ethnic Group | Not or | + + + Author + + + | Author | [facility] | + + + | Organization | [facility] | + + + | Address | [address] | | | [place] [address] | + + + | Phone | | + + + Care Team Providers + + + + | Care Emergency Doctor Name | Role | Phone | + [...] | 2022-03-11 00:00 | OXYCODONE HCL | [facility] | + + + + | 2022-03-11 00:00 | OXYCODONE HCL | [facility] | + + + + | 2022-03-11 00:00 | RIVAROXABAN | [facility] | + + + + | 2022-03-11 00:00 | RIVAROXABAN | [facility] | + + + + | 2022-03-11 00:00 | DOXYCYCLINE HYCLATE | [facility] | + + + + | 2022-03-17 00:00 | DOXYCYCLINE HYCLATE | [facility] | + + + + | 2021-12-12 00:00 | DOXYCYCLINE HYCLATE | [facility] | + + + + | 2022-03-11 00:00 | DOXYCYCLINE HYCLATE | [facility] | + + + + | 2022-03-17 00:00 | DOXYCYCLINE HYCLATE | [facility] | + + + + | 2021-12-12 00:00 | BENZONATATE | [facility] | + + + + | 2022-03-11 00:00 | BENZONATATE | [facility] | + + + + | 2022-03-17 00:00 | BENZONATATE | [facility] | + + + + | 2020-09-22 00:00 | IBUPROFEN | [facility] | + + + + | 2020-09-22 00:00 | IBUPROFEN | [facility] | + + + + | 2020-09-22 00:00 | ACETAMINOPHEN | [facility] | + + + + | 2020-09-22 00:00 | ACETAMINOPHEN | [facility] | + + + + | 2022-03-11 00:00 | CELECOXIB | [facility] | + + + + | 2022-03-11 00:00 | CELECOXIB | [facility] | + + + + | 2022-03-11 00:00 | UBIDECARENONE | [facility] | + + + + | 2022-03-17 00:00 | UBIDECARENONE | [facility] | + + + + | 2021-12-12 00:00 | CHICO ANDERSON | [facility] | | | 0.05% | | + + + + | 2021-12-12 00:00 | ASCORBIC ACID | [facility] | + + + + | 2022-03-11 00:00 | ASCORBIC ACID | [facility] | + + + + | 2022-03-17 00:00 | ASCORBIC ACID | [facility] | + + + + | 2021-12-12 00:00 | CICLOPIROX | [facility] | + + + + | 2022-03-11 00:00 | CICLOPIROX | [facility] | + + + + | 2022-03-17 00:00 | CICLOPIROX | [facility] | + + + + | 2022-03-11 00:00 | GABAPENTIN | [facility] | + + + + | 2022-03-11 00:00 | GABAPENTIN | [facility] | + + + + | 2022-03-11 00:00 | METRONIDAZOLE | [facility] | + + + + | 2022-03-17 00:00 | METRONIDAZOLE | [facility] | + + + + | 2021-12-12 00:00 | predniSONE | [facility] | + + + + | 2022-03-11 00:00 | predniSONE | [facility] | + + + + | 2022-03-17 00:00 | predniSONE | [facility] | + + + + | 2022-03-11 00:00 | SENNOSIDES | [facility] | + + + + | 2022-03-11 00:00 | SENNOSIDES | [facility] | + + + + | 2021-12-12 00:00 | ASPIRIN | [facility] | + + + + | 2022-03-11 00:00 | ASPIRIN | [facility] | + + + + | 2022-03-17 00:00 | ASPIRIN | [facility] | + + + + | 2022-03-11 00:00 | Cyclosporine | [facility] | + + + + | 2022-03-17 00:00 | Cyclosporine | [facility] | + + + + | 2021-12-12 00:00 | VIT D3 & K/BERBERINE | [facility] | | | HCL/HOPS | | + + + + | 2022-03-11 00:00 | VIT D3 & K/BERBERINE | [facility] | | | HCL/HOPS | | + + + + | 2022-03-17 00:00 | VIT D3 & K/BERBERINE | [facility] | | | HCL/HOPS | | + + + + | 2016-01-04 00:00 | | [facility] | | | SULFAMETHOXAZOLE/TRIMETHOPR | | | | IM DS | | + + + + | 2016-01-04 00:00 | | [facility] | | | SULFAMETHOXAZOLE/TRIMETHOPR | | | | IM DS | | + + + + | 2021-12-12 00:00 | | [facility] | | | SULFAMETHOXAZOLE/TRIMETHOPR | | | | IM DS | | + + + + | 2021-12-12 00:00 | | [facility] | | | SULFAMETHOXAZOLE/TRIMETHOPR | | | | IM DS | | + + + + | 2021-12-12 00:00 | ROSUVASTATIN CALCIUM | [facility] | + + + + | 2022-03-11 00:00 | ROSUVASTATIN CALCIUM | [facility] | + + + + | 2022-03-17 00:00 | ROSUVASTATIN CALCIUM | [facility] | + + + + | 2021-12-12 00:00 | OXYBUTYNIN CHLORIDE | [facility] | + + + + | 2022-03-11 00:00 | OXYBUTYNIN CHLORIDE | [facility] | + + + + | 2022-03-17 00:00 | OXYBUTYNIN CHLORIDE | [facility] | + + + + | 2021-12-12 00:00 | Bety SPENCER & | [facility] | | | E/LUTEIN/MINERALS | | + + + + | 2022-03-11 00:00 | Bety SPENCER & | [facility] | | | E/LUTEIN/MINERALS | | + + + + | 2022-03-17 00:00 | Bety SPENCER & | [facility] | | | E/LUTEIN/MINERALS | | + + + + | 2021-12-12 00:00 | FLUTICASONE/SALMETEROL | [facility] | + + + + | 2022-03-11 00:00 | FLUTICASONE/SALMETEROL | [facility] | + + + + | 2022-03-17 00:00 | FLUTICASONE/SALMETEROL | [facility] | + + + + Problems + + + + | date | description | facility | + + + + | 2016-01-04 00:00 | Urinary tract infection | [facility] | + + + + | 2016-01-04 00:00 | Urinary tract infection | [facility] | + + + + | 2016-08-05 00:00 | Flank pain | [facility] | + + + + | 2016-08-05 00:00 | Flank pain | [facility] | + + + + | 2021-04-11 00:00 | Palpitations | [facility] | + + + + | 2021-04-11 00:00 | Palpitations | [facility] | + + + + | 2021-04-11 19:40 | HYPERLIPIDEMIA, | [facility] | | | UNSPECIFIED | | + + + + | 2021-04-11 19:40 | UNSPECIFIED | [facility] | | | OSTEOARTHRITIS, UNSPECIFIED | | | | SITE | | + + + + | 2021-04-11 19:40 | PALPITATIONS | [facility] | + + + + | 2021-04-11 19:40 | OTHER PHYSICIAN CHIEF OF PATHOLOGY (CURRENT) | [facility] | | | DRUG [...] + | 2021-12-12 00:00 | Cellulitis | [facility] | + + + + | 2021-12-12 00:00 | Cellulitis | [facility] | + + + + | 2021-12-12 01:50 | CELLULITIS OF LEFT LOWER | [facility] | | | LIMB | | + + + + | 2021-12-12 01:50 | UNSPECIFIED | [facility] | | | OSTEOARTHRITIS, UNSPECIFIED | | | | SITE | | + + + + | 2021-12-12 01:50 | OTHER PHYSICIAN CHIEF OF PATHOLOGY (CURRENT) | [facility] | | | DRUG [...] + + + | 2022-03-16 23:27 | PHYSICIAN CHIEF OF PATHOLOGY (CURRENT) USE OF | [facility] | | | ANTICOAGULANTS | | + + + + | 2022-03-16 23:27 | OTHER PHYSICIAN CHIEF OF PATHOLOGY (CURRENT) | [facility] | | | DRUG THERAPY | | + + + + | 2022-03-16 23:27 | ALLERGY STATUS TO | [facility] | | | PENICILLIN | | + + + + | 2022-03-16 23:27 | ALLERGY STATUS TO OTHER | [facility] | | | ANTIBIOTIC AGENTS STATUS | | + + + + | 2022-03-17 00:00 | Hematoma | [facility] | + + + + | 2022-03-19 [...] (missing) | | (unavailable | :30:08 | [facility] | | | | | ) | [...]
--- OUTSIDE RECORDS SUMMARY | ~2022-09-02 | XMS | Continuity of Care Document ---
Demographics + + + | Address | [address] | | | [place] [address] | + + + | Preferred Language | Unknown | + + + | Marital Status | | + + + | Latter-Day Affiliation | Unknown | + + + | Race | White | + + + | Ethnic Group | Not or | + + + Author + + + | Author | [facility] | + + + | Organization | [facility] | + + + | Address | [address] | | | [place] [address] | + + + | Phone | | + + + Care Team Providers + + + + | Care Stitch Rubber Name | Role | Phone | + [...] | (no severity) | | | | [facility] | | | | | | Hospital [...] | 2022-03-11 00:00 | OXYCODONE HCL | [facility] | + + + + | 2022-03-11 00:00 | OXYCODONE HCL | [facility] | + + + + | 2022-03-11 00:00 | RIVAROXABAN | [facility] | + + + + | 2022-03-11 00:00 | RIVAROXABAN | [facility] | + + + + | 2022-03-11 00:00 | DOXYCYCLINE HYCLATE | [facility] | + + + + | 2022-03-17 00:00 | DOXYCYCLINE HYCLATE | [facility] | + + + + | 2021-12-12 00:00 | DOXYCYCLINE HYCLATE | [facility] | + + + + | 2022-03-11 00:00 | DOXYCYCLINE HYCLATE | [facility] | + + + + | 2022-03-17 00:00 | DOXYCYCLINE HYCLATE | [facility] | + + + + | 2021-12-12 00:00 | BENZONATATE | [facility] | + + + + | 2022-03-11 00:00 | BENZONATATE | [facility] | + + + + | 2022-03-17 00:00 | BENZONATATE | [facility] | + + + + | 2020-09-22 00:00 | IBUPROFEN | [facility] | + + + + | 2020-09-22 00:00 | IBUPROFEN | [facility] | + + + + | 2020-09-22 00:00 | ACETAMINOPHEN | [facility] | + + + + | 2020-09-22 00:00 | ACETAMINOPHEN | [facility] | + + + + | 2022-03-11 00:00 | CELECOXIB | [facility] | + + + + | 2022-03-11 00:00 | CELECOXIB | [facility] | + + + + | 2022-03-11 00:00 | UBIDECARENONE | [facility] | + + + + | 2022-03-17 00:00 | UBIDECARENONE | [facility] | + + + + | 2021-12-12 00:00 | CHICO ANDERSON | [facility] | | | 0.05% | | + + + + | 2021-12-12 00:00 | ASCORBIC ACID | [facility] | + + + + | 2022-03-11 00:00 | ASCORBIC ACID | [facility] | + + + + | 2022-03-17 00:00 | ASCORBIC ACID | [facility] | + + + + | 2021-12-12 00:00 | CICLOPIROX | [facility] | + + + + | 2022-03-11 00:00 | CICLOPIROX | [facility] | + + + + | 2022-03-17 00:00 | CICLOPIROX | [facility] | + + + + | 2022-03-11 00:00 | GABAPENTIN | [facility] | + + + + | 2022-03-11 00:00 | GABAPENTIN | [facility] | + + + + | 2022-03-11 00:00 | METRONIDAZOLE | [facility] | + + + + | 2022-03-17 00:00 | METRONIDAZOLE | [facility] | + + + + | 2021-12-12 00:00 | predniSONE | [facility] | + + + + | 2022-03-11 00:00 | predniSONE | [facility] | + + + + | 2022-03-17 00:00 | predniSONE | [facility] | + + + + | 2022-03-11 00:00 | SENNOSIDES | [facility] | + + + + | 2022-03-11 00:00 | SENNOSIDES | [facility] | + + + + | 2021-12-12 00:00 | ASPIRIN | [facility] | + + + + | 2022-03-11 00:00 | ASPIRIN | [facility] | + + + + | 2022-03-17 00:00 | ASPIRIN | [facility] | + + + + | 2022-03-11 00:00 | Cyclosporine | [facility] | + + + + | 2022-03-17 00:00 | Cyclosporine | [facility] | + + + + | 2021-12-12 00:00 | VIT D3 & K/BERBERINE | [facility] | | | HCL/HOPS | | + + + + | 2022-03-11 00:00 | VIT D3 & K/BERBERINE | [facility] | | | HCL/HOPS | | + + + + | 2022-03-17 00:00 | VIT D3 & K/BERBERINE | [facility] | | | HCL/HOPS | | + + + + | 2016-01-04 00:00 | | [facility] | | | SULFAMETHOXAZOLE/TRIMETHOPR | | | | IM DS | | + + + + | 2016-01-04 00:00 | | [facility] | | | SULFAMETHOXAZOLE/TRIMETHOPR | | | | IM DS | | + + + + | 2021-12-12 00:00 | | [facility] | | | SULFAMETHOXAZOLE/TRIMETHOPR | | | | IM DS | | + + + + | 2021-12-12 00:00 | | [facility] | | | SULFAMETHOXAZOLE/TRIMETHOPR | | | | IM DS | | + + + + | 2021-12-12 00:00 | ROSUVASTATIN CALCIUM | [facility] | + + + + | 2022-03-11 00:00 | ROSUVASTATIN CALCIUM | [facility] | + + + + | 2022-03-17 00:00 | ROSUVASTATIN CALCIUM | [facility] | + + + + | 2021-12-12 00:00 | OXYBUTYNIN CHLORIDE | [facility] | + + + + | 2022-03-11 00:00 | OXYBUTYNIN CHLORIDE | [facility] | + + + + | 2022-03-17 00:00 | OXYBUTYNIN CHLORIDE | [facility] | + + + + | 2021-12-12 00:00 | Bety SPENCER & | [facility] | | | E/LUTEIN/MINERALS | | + + + + | 2022-03-11 00:00 | Bety SPENCER & | [facility] | | | E/LUTEIN/MINERALS | | + + + + | 2022-03-17 00:00 | Bety SPENCER & | [facility] | | | E/LUTEIN/MINERALS | | + + + + | 2021-12-12 00:00 | FLUTICASONE/SALMETEROL | [facility] | + + + + | 2022-03-11 00:00 | FLUTICASONE/SALMETEROL | [facility] | + + + + | 2022-03-17 00:00 | FLUTICASONE/SALMETEROL | [facility] | + + + + Problems + + + + | date | description | facility | + + + + | 2016-01-04 00:00 | Urinary tract infection | [facility] | + + + + | 2016-01-04 00:00 | Urinary tract infection | [facility] | + + + + | 2016-08-05 00:00 | Flank pain | [facility] | + + + + | 2016-08-05 00:00 | Flank pain | [facility] | + + + + | 2021-04-11 00:00 | Palpitations | [facility] | + + + + | 2021-04-11 00:00 | Palpitations | [facility] | + + + + [...] + + | 2021-04-11 19:40 | OTHER METALLURGY TEACHER (CURRENT) | [facility] | | | DRUG [...] + | 2021-12-12 00:00 | Cellulitis | [facility] | + + + + | 2021-12-12 00:00 | Cellulitis | [facility] | + + + + | 2021-12-12 01:50 | CELLULITIS OF LEFT LOWER | [facility] | | | LIMB | | + + + + | 2021-12-12 01:50 | UNSPECIFIED | [facility] | | | OSTEOARTHRITIS, UNSPECIFIED | | | | SITE | | + + + + | 2021-12-12 01:50 | OTHER METALLURGY TEACHER (CURRENT) | [facility] | | | DRUG [...] + + + | 2022-03-16 23:27 | METALLURGY TEACHER (CURRENT) USE OF | [facility] | | | ANTICOAGULANTS | | + + + + | 2022-03-16 23:27 | OTHER METALLURGY TEACHER (CURRENT) | [facility] | | | DRUG THERAPY | | + + + + | 2022-03-16 23:27 | ALLERGY STATUS TO | [facility] | | | PENICILLIN | | + + + + | 2022-03-16 23:27 | ALLERGY STATUS TO OTHER | [facility] | | | ANTIBIOTIC AGENTS STATUS | | + + + + | 2022-03-17 00:00 | Hematoma | [facility] | + + + + [...] (missing) | | (unavailable | 09:30:08 | [facility] | | | | | ) | [...]
[~2022-09-02 19:57] MED LIST changes: +CEFUROXIME500 MG PO; +CEPHALEXIN500 MG PO; +DOVONEX60 GM TOP; -EMERGEN-C 500500 MG PO; +HALOBETASOL PRO15 G1 TOP; +MELATONIN2.5 MG PO; -OSTERA TABLET1 EACH PO; +RESTASIS MULTI5.5 ML OP; +VITAMIN D350 MC3 PO
[2022-09-02 20:22] LABS: BASOPHILS 0.2 % (0-2); HEMATOCRIT 37.1 % (35.0-50.0); HEMOGLOBIN 12.1 g/dL (12.0-18.0); MCH 27.7 (27-36); MCHC 32.7 g/dl (30-36); MCV 84.9 fl (81-99); MONOCYTES 2.2 % (0-12); NEUTROPHILS 93.6 % (39-80); PLATELET COUNT 119 K/uL (140-440); RBC 4.37 M/ul (4.3-5.7); RDW 16.2 (10.5-15.0)
[2022-09-02 20:29] LABS: INR 0.99 (0.80-1.30); PROTIME 12.6 Sec (11.2-14.2)
[2022-09-02 20:33] LABS: ALBUMIN 3.4 g/dL (3.4-5.0); ALBUMIN/GLOBULIN RATIO 0.97 (1.1-2.4); ANION GAP 13.3 (7-21); BILIRUBIN, TOTAL 0.4 ng/dL (0.2-1.0); BUN/CREATININE RATIO 24.35 (6.0-28.6); CALCIUM 8.9 mg/dL (8.5-10.1); CREATININE, SERUM 0.78 mg/dL (0.55-1.02); POTASSIUM 4.3 mmol/L (3.5-5.1); PROTEIN, TOTAL 6.9 g/dL (6.4-8.2)
[2022-09-02 21:08] LABS: BILIRUBIN, URINE NEGATIVE (negative); BLOOD/HGB, URINE NEGATIVE (Negative); KETONE, URINE NEGATIVE (Negative); LEUK ESTERASE, URINE NEGATIVE (negative); NITRITE, URINE NEGATIVE (negative)
[2022-09-03 00:37] VITALS: BP 93/53
--- NOTE | 2022-09-03 01:18 | NUR ---
REPORT RECEIVED FROM [facility] PROMOTER BILLY. BROUGHT TO [facility] ROOM 123 BY THIS RN VIA STRETCHER. TRANSFERRED TO HOSPITAL BED VIA INFLATABLE TRANSFER SLIDE SHEET AND TWO ADDITIONAL RN ASSIST. ASSESSMENT COMPLETE. pt ABLE TO LIFT RIGHT LEG, SOME NUMBNESS NOTED IN RIGHT FOOT. REPORTS PAIN IN RIGHT THIGH. DENIES NEED FOR PRN MEDICATION. pt STATES RIGHT KNEE STILL FEELS DIFFICULT TO CONTROL. CRYO CUFF WITH ICE IN PLACE. ORIENTATION TO ROOM PROVIDED. MEDICATIONS IN ROOM SAFE WITH WALLET. FRIEND ROBER IN ROOM. CALL LIGHT IN REACH. RN EXITS ROOM pt REQUESTS SENNA AND PRN PAIN MEDICATION. EMAR UPDATED.
--- NOTE | 2022-09-03 01:30 | NUR ---
PRN PAIN MEDICATION ADMINISTERED AT THIS TIME, pt RATES PAIN 2/10 IN RIGHT KNEE AND RIGHT THIGH AREA. pt ATE HALF OF SANDWICH WITH PO MEDICATIONS. DENIES ADDITIONAL NEEDS. CALL LIGHT IN REACH.
--- NOTE | 2022-09-03 03:32 | NUR ---
CHECKED ON pt. pt RESTING IN BED WITH EYES CLOSED, HOB ELEVATED. BREATHING EQUAL AND UNLABORED. CRYO CUFF IN PLACE. CALL LIGHT IN REACH. FRIEND ROBER SLEEPING ON COUCH.
[2022-09-03 06:04] VITALS: BP 97/55
--- NOTE | 2022-09-03 06:09 | NUR ---
pt SLEEPING, AWAKENS TO VOICE. VSS. CRYO CUFF REFILLED WITH ICE. pt DENIES TOILETING NEEDS. pt ABLE TO MOVE RLE. STATES NUMBNESS HAS IMPROVED. STRONG PEDAL PULSE PALPATED BLE. SANTOSH WRAP CDI. CALL LIGHT IN REACH. ICE WATER REFILLED.
--- NOTE | 2022-09-03 07:10 | NUR ---
Report received from Yadira MAHAJAN. Pt resting in bed with eyes closed, even and unlabored respirations, no needs at this time. Will continue plan of care.
--- NOTE | 2022-09-03 09:03 | NUR ---
PT WAS AWAKE ALERT AND ORIENTED. CURRENTLY VISITING WITH A FRIEND. MEDS GIVEN. PT STATES NO PAIN AND IS SITTING UPRIGHT IN BED. CALL LIGHT WITHIN REACH
[2022-09-03 09:05] VITALS: BP 105/58
--- NOTE | 2022-09-03 09:39 | NUR ---
PT UP TO BSC MINIMAL ASSIST BUT PT STILL UNABLE TO BEAR WEIGHT ON RIGHT LEG. STATES IT IS STILL "WOBBLY" FROM KNEE DOWN. PT ABLE TO PUT LEGS BACK INTO BED AND SHIFT AROUND. GIVEN MORE ICE WATER. CRYO IN PLACE.
--- NOTE | 2022-09-03 09:47 | NUR ---
SPOKE TO PATIENT ABOUT THE DISCHARGE PLAN. PATIENT WENT HOME YESTERDAY POST-OP RIGHT KNEE REPLACEMENT. PATIENT TOOK A NAP AND WOKE UP AND THE KNEE WAS NUMB. PATIENT WAS ADMITTED TO MED-SURG.PATIENT PLANS TO GO HOME TO HER HOUSE WHEN THE PATIENT IS MEDICALLY STABLE. PATIENT HAS FRIENDS AND FAMILY THAT WIILL HELP WHEN DISCHARGED. PATIENT'S IS DISABLED AND PATIENT HAS HELP ARRANGED FOR HIS CARE. PATIENT HAS A WALKER, WHEELCHAIR AND GRAB BARS IN THE BATHROOM. PATIENT PLANS TO DRIVE AGAIN WHEN THE MD LETS HER. PATIENT CAN DO HER OWN ADLS WITHOUT HELP. PATIENT HAS A FRIEND ROBER WHO IS AVAILABLE TO HELP NEEDED. PATIENT HAD HOME HEALTH ORDERED WHICH WAS [facility] FROM [facility]. PARAFFIN PLANT SWEATER OPERATOR SPOKE TO [facility] TO LET THEM KNOW THAT PATIENT IS IN THE HOSPITAL.PATIENT STATES THAT SHE HAS NO CASE MANAGEMENT NEEDS AT THIS TIME.
[2022-09-03] MEDS ORDERED: CYCLOSPORINE1 EACH OU (10:58)
--- NOTE | 2022-09-03 11:41 | NUR ---
PT IN BED. TALKED OF FAMILY AND HOW SHE ENDED UP BACK IN HOSPITAL. EXPRESSED DISAPPOINGMENT AND FRUSTRATION WITH SITUATION. OVERALL POSITIVE ATTITUDE. IS HOPEFUL FOR FULL RECOVERY. I EXERCISED MINISTRY OF PRESENCE. PT CONSENTED TO PRAYER. PRAYED FOR ONGOING HEALING.
--- NOTE | 2022-09-03 12:05 | NUR ---
Discussed patient status with PT. Updated Dr Brown on patient's ability to do PT, bleeding from dressing. New orders for hinge knee brace, 0-60 degrees, patient education, DC of Xarelto, and further PT. Dressing changed by creative recruiter.
[2022-09-03] MEDS ORDERED: OXYBUTYNIN CHLO15 MG PO (13:40)
[2022-09-03] MEDS ORDERED: ROSUVASTATIN CAL5 MG PO (13:41)
--- NOTE | 2022-09-03 13:43 | NUR ---
MED REC COMPLETE
--- NOTE | 2022-09-03 14:00 | NUR ---
Assisted physical therapist with patient exercise and brace placement. Pt denies pain, states "Still wobbly" with movement, fearful. Instructed in detail on brace placement and use, will continue to reinforce prior to DC.
[2022-09-03 14:59] VITALS: BP 105/60
--- NOTE | 2022-09-03 15:20 | NUR ---
Reinforced dressing with ABD pad, SANTOSH wrap. Ice to knee.
[2022-09-03 18:49] VITALS: BP 93/40
--- NOTE | 2022-09-03 19:40 | NUR ---
REPORT RECEIVED FROM ZAINA ANGUIANO. pt UP IN CHAIR. HINGE BRACE ON. CRYO CUFF WITH ICE IN PLACE. pt DENIES PAIN, COMPLAINS OF SOME PAIN IN RIGHT THIGH. STATES "MY LEG STILL FEELS WOBBLY". CALL LIGHT IN REACH. FRIEND ROBER NOW BACK IN ROOM.
--- NOTE | 2022-09-03 20:11 | NUR ---
PHONE CALL TO MD FOR ORDER VERIFICATION. ORDERS REPEATED BACK TO VERIFY. UPDATED ON pt STATUS.
[2022-09-03 21:26] VITALS: BP 95/43
--- NOTE | 2022-09-03 21:43 | NUR ---
pt RESTING IN BED, RATES PAIN 4/10 IN RIGHT KNEE/LEG. pt REPORTS SENSATION RETURNING TO RIGHT KNEE, BELOW KNEE MEDIALLY. CONTINUES TO NOT BE ABLE TO FULLY LIFT LEG OFF BED. HINGE BRACE IN PLACE. ASSESSMENT COMPLETE. PRN AND SCHEDULED MEDICATIONS ADMINISTERED, SEE EMAR. CRYO CUFF REFILLED WITH ICE AND IN PLACE. COFFEE PROVIDED. CALL LIGHT IN REACH.
--- NOTE | 2022-09-03 23:14 | NUR ---
CHECKED ON pt. ROLLED TOWEL UNDER HEEL TO STRAIGHTEN LEG. BRACE IN PLACE. pt STATES SHE FEELS COMFORTABLE NOW. CRYO CUFF IN PLACE. CALL LIGHT IN REACH. pt SITTING UP IN BED, VISITING WITH FRIEND.
--- NOTE | 2022-09-04 00:55 | NUR ---
PT CALLED REQUESTED LIGHTS TO BE DIM, FRIEND ASLEEP ON COUCH, AND NIGHT LIGHT IN HER EYES. FRIEND REFUSED EYE MASK BUT A SOLUTION WAS DEVICED AND ALL WERE CONTENT. DID TURN THE ROOM TEMP DOWN PER PT REQUEST.
--- NOTE | 2022-09-04 02:26 | NUR ---
PATIENT RESTING IN BED WITH EYES CLOSED. BREATHING UNLABORED. NO DISTRESS NOTED. LIGHTS OFF IN ROOM.
[2022-09-04 06:17] VITALS: BP 113/58
--- NOTE | 2022-09-04 06:37 | NUR ---
pt SLEEPING, AWAKENS TO VOICE. RIGHT LEG ASSESSED, UNCHANGED SENSATION SINCE START OF SHIFT. pt CONTINUES TO HAVE DIFFICULTY LIFTING LEG OFF BED. STRONG PEDAL PULSE. BRACE IN PLACE. 2PA TO PIVOT TO BSC FOR VOID. LEG ELEVATED ON GARBAGE CAN TIPPED OVER WHILE ON BSC. CALL LIGHT IN REACH. pt REQUESTING TIME ON BSC FOR BM.
--- NOTE | 2022-09-04 07:48 | NUR ---
Got report from night shift manager nurse. Patient currently sitting up in bed visiting with a friend. Patient has cryo cuff on. Patient states she is doing better but she is forsure not ready to leave yet. Call light within reach, patient denies any cares at this time.
--- NOTE | 2022-09-04 08:55 | NUR ---
Spoke to . Dressing to be changed. New ABD padding placed and catherine wrap. Patient has brace on and cryo cuff running. Denies any other cares at this time. Xray has been done. Patient has her friend at bedside.
--- NOTE | 2022-09-04 09:42 | NUR ---
SPOKE TO PATIENT ABOUT HER DISHARGE PLAN. PATIENT WILL GOING BACK TO SURGERY ON Friday09/06/22 FOR A TORN TENDON. PATIENT IS UPSET ABOUT HAVING TO GO BACK TO THE OR. PATIENT'S HAS PARKISIONS AND THE PATIENT DOES NOT LIKE BEING AWAY FROM HER . THE HAS A FULLTIME ADVERTISING PRODUCTION MANAGER ARRANGED. A REFERRAL PER PATIENT'S REQUEST WAS SENT TO [facility] FOR [facility].
[2022-09-04 10:15] VITALS: BP 117/98
--- NOTE | 2022-09-04 10:19 | NUR ---
Into do morning assessment and give medications. Patient cryo cuff ice was replaced. Patient doing well. No needs at this time. Patient ate 100% of breakfast. Friend still at bedside.
--- NOTE | 2022-09-04 11:59 | NUR ---
PATIENT DENIES PAIN, FAMILY AT BEDSIDE. CALL LIGHT WITHIN REACH. FRESH WATER GIVEN. WILL LET PATIENT VISIT.
--- NOTE | 2022-09-04 12:04 | NUR ---
PT EXPRESSED FRUSTRATION WITH CONDITION. TALKED OF MANY THINKS INCLUDING WORRY FOR WHOSE HEALTH IS FRAGILE. I EXCERCISED MINISTRY OF PRESENCE AND LISTENED. ASSURED HER THAT ANGER AND FRUSTRATION WERE NORMAL RESPONSES. ENCOURAGE PT TO PROCESS THROUGH THOSE TO MORE POSITIVE MINDSET IN WHICH HEALING TAKES PLACE. PT AGREED. PRAYED FOR PATIENCE, PERSISTENCE AND PEACE.
--- NOTE | 2022-09-04 12:36 | NUR ---
PHONE CALL TO DR. HOWARD. PER XRAY TENDON DID RUPTURE. OK PER TO ADVISE PATIENT.
--- NOTE | 2022-09-04 14:12 | NUR ---
Patient up in the chair, PT helped get her into chair for lunch. Patient would like to remain in chair for awhile. Pain controlled. Denies any cares at this time.
[2022-09-04 14:29] VITALS: BP 97/39
[2022-09-04 14:54] VITALS: BP 98/48
--- NOTE | 2022-09-04 16:22 | NUR ---
PHONE CALL TO . PATIENT WAS ON CEFUROXIME IN THE ER BUT SINCE WAS AN ER ORDER IT DROPPED OFF. PATIENT TO STILL BE ON THIS. WILL PLACE ORDER.
--- NOTE | 2022-09-04 16:44 | NUR ---
PATIENT UP TO BEDSIDE COMMODE. STAND AND PIVOT NON WEIGHT BARING. PATIENT IS A 2 PERSON ASSIST. PATIENTS FAMILY AND FRIENDS ARE NO LONGER IN THE ROOM.
--- NOTE | 2022-09-04 18:26 | NUR ---
PATIENT UP IN THE CHAIR. PATIENT DID HAVE A BOWEL MOVEMENT TODAY. PATIENT ATE 100% OF MEAL. REMOVED TRAY SHE WANTS TO WRITE SOMETHINGS DOWN.DENIES PAIN AT THIS TIME. CRYO CUFF ON, NEWLY FILLED WITH ICE.
[2022-09-04 18:58] VITALS: BP 101/55
[2022-09-04 21:10] VITALS: BP 103/43
--- NOTE | 2022-09-04 22:00 | NUR ---
Pt assesed. No complains of pain at rest. Got up pt to commode with 2 person stand pivot to commode, mild pain at that time. Pt Had a BM and voided.
[2022-09-05 06:05] VITALS: BP 117/52
--- NOTE | 2022-09-05 07:33 | NUR ---
Pt slept wellovernight. Got up twice to the commode to void. R leg catherine wrapp and brace on. Pt requested r leg ANGELA stocking removed due to discomfort. PT had no pain overnight.
--- NOTE | 2022-09-05 07:58 | NUR ---
Spoke with Dr. Brown this am. Pt did have a patella rupture. She will need to stay IP and have surgery tomorrow as she is nonwt bearing. Pt should have been IP yesterday. Order entered per verbal order. Progress note for today sent to [place] [facility] requesting 6-8 wk placement as pt will remain non weight bearing and will need rehab.
--- NOTE | 2022-09-05 08:08 | NUR ---
THIS TYPER HAS TAKEN OVER CARES FROM [employer]. THE PT IS SITTING IN THE CHAIR WITH BLE ELEVATED. PT HAS REQUESTED SHE WANTS TO WASH HER HAIR. PT HAS INSISTED SHE DOES NOT WANT TO USE A SHOWER CAP. PT SAID SHE WOULD PREFER TO USE THE [employer]RA STEADY AND ATTEMPT TO WASH HAIR UNDER THE SINK. THIS TYPER SAID SHE WOULD TALK TO THE NURSE AND DISCUSS THIS REQUEST TO SEE IF IT IS FEASIBLE. NO OTHER NEEDS AT THIS TIME. CALL LIGHT WITHIN REACH.
--- NOTE | 2022-09-05 08:41 | NUR ---
PATIENT SITTING UP IN CHAIR, NO ACUTE DISTRESS. PATIENT REPORTS PAIN 2/10 IN RIGHT LEG. POLAR ICE AND BRACE TO RLE; CMS INTACT. FRESH WATER PROVIDED. CALL LIGHT WITHIN REACH OF PATIENT. INSTRUCTED PATIENT TO CALL STAFF IF SHE HAS NEEDS, PT VERBALIZED HER UNDERSTANDING.
[2022-09-05 09:35] VITALS: BP 94/52
--- NOTE | 2022-09-05 10:05 | NUR ---
Notified by [facility] they will accept this pt on Friday for rehab.
--- NOTE | 2022-09-05 11:12 | NUR ---
PATIENT SITTING UP IN CHAIR VISITING WITH HER FRIEND, NO DISTRESS. PATIENT DENIES NEEDS AT THIS TIME. BRACE TO RLE, LEG ELVEATED IN CHAIR. PATIENT REPORTS SHE WILL CALL IF SHE HAS NEEDS. CALL LIGHT IN PATIENT'S HAND.
--- NOTE | 2022-09-05 13:21 | NUR ---
PATIENT REQUESTING TO WASH HER HAIR TODAY BEFORE PLANNED SURGERY TOMORROW. PLAN IF FOR STAFF TO ASSIST WITH HAIR WASHING WHEN PATIENT GETS UP TO VOID THIS NEXT TIME. PT UPDATED WITH PLAN OF CARE.
--- NOTE | 2022-09-05 13:38 | NUR ---
PT SITTING UP IN CHAIR EATING BREAKFAST. MUCH BETTER SPIRITS TODAY. TALKED OF PLANS POST-SURGERY AND ANTICIPATES SHORT STAY AT [facility]. EXPRESSED CONFIDENCE IN ABILITY TO ADVOCATE FOR HERSELF. PRAYED FOR ONGOING HEALING, PATIENCE, AND PERSEVERENCE.
--- NOTE | 2022-09-05 15:13 | NUR ---
Patient up to commode; large bowel movement reported per pt. Patient had her hair washes at this time per her request. Pt back in chair with three person assist; stand pivot NWB to RLE with walker/gait belt, tolerated well. Personal items within reach of patient. Patient instructed to call staff for needs. Call light within reach.
--- NOTE | 2022-09-05 15:14 | NUR ---
In to see patient, who is visiting with her friend. Dayana was informed that she has been accepted to [facility] for an admission on Friday. 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 We also discussed insurance and her benefit with having two insurances. Dayana states that she understands her plan of care following her surgery on Friday (09/06), and she is agreeable with this plan of care stating "I just want to do what I need to do to be able to go back home." Dayana denies any further questions at this time.
[2022-09-05 17:56] VITALS: BP 104/53
--- NOTE | 2022-09-05 18:08 | NUR ---
Stopped and spoke with Dayana. UPdated I contact [facility] and they state she will have a private room. Pt eating dinner. Tells me the story of how she hurt her knee and is still not aware of how this happened. Plans on surgery tomorrow and plans on dc to [facility] on Friday when they have a bed open.
--- NOTE | 2022-09-05 18:42 | NUR ---
PATIENT SITTING UP IN CHAIR EATING DINNER, NO DISTRESS. PT IS ON HER PHONE AT THIS TIME. IV PATENT, INFUSING FLUIDS PER PROVIDER ORDER.
[2022-09-05 21:13] VITALS: BP 103/57
[2022-09-06] VITALS (7 sets, daily range): BP systolic 104–124; BP diastolic 52–80
--- NOTE | 2022-09-06 09:25 | NUR ---
PATIENT OFF FLOOR FOR SURGERY.
--- NOTE | 2022-09-06 09:29 | NUR ---
09/06/22 0929 Kassidy Brown PT TO PACU AWAKE ON AND OFF, SHE DENIES PAIN OR NAUSEA. PT RESTS WITH EYES CLOSED WHEN NOT STIMULATED.
--- NOTE | 2022-09-06 10:23 | NUR ---
Patient back from surgery, alert and oriented x4. Patient's vital signs are stable, afebrile. Patient reports tolerable RLE pain, 2/10. Patient able to move toes, pedal pulse is intact/strong, cms intact. RLE bulky dressing is CDI. Brace on bed next to patient, per report from post op RN, keep brace off RLE at this time. Polar ice in place over RLE dressing, pt tolerating well. Bed alarm placed. Patient oriented to room and call light. Personal supplies and call light within reach of pt.
--- NOTE | 2022-09-06 11:04 | NUR ---
Patient doing well, alert and oriented x4. Patient eating a snack at this time. Vital signs remains stable, sp02 99% on room air. Pt reports 3/10 right knee pain. Oxycodone 10mg po admin at this time. IV fluids infusing per provider order. RLE dressing unchanged; cdi. CMS intact to rLE. Call light within reach of pt.
--- NOTE | 2022-09-06 12:00 | NUR ---
PT GONE TO SURGERY AT TIME OF VISIT. SAID SILENT PRAYER FOR SUCCESSFUL PROCEDURE.
--- NOTE | 2022-09-06 12:54 | OR ---
[facility] [address], [place] [address] Signed DATE OF OPERATION: 09/06/2022 SURGEON: Jacki Brown MD PREOPERATIVE DIAGNOSES: 1. Patellar tendon rupture, right. 2. MCL rupture, right. POSTOPERATIVE DIAGNOSES: 1. Patellar tendon rupture, right. 2. MCL rupture, right. PROCEDURE PERFORMED: Repair right patellar tendon/MCL.. PROJECT LEADER: Radha Patel PA-C. Radha was present and critical for all portions of procedure. ANESTHESIA: Spinal. BLOOD LOSS: 125 mL. IMPLANTS: Six 5.5 [place] and four 4.75 [place]. BRIEF HISTORY: Sherice is a 72-year-old female, who underwent a total knee replacement on Friday. Friday night, she got up from her nap and went to the bathroom. She stood up quickly and twisted her knee and it collapsed to the inside. She was unable to move her knee after this. She was ultimately seen in the ER that night after contacting me. We got an MRI to rule out an epidural hematoma. The workup showed the patella to be in a significant altered position. At that point, risks and benefits of operative treatment were discussed with her and she elected to proceed. DESCRIPTION OF PROCEDURE: Once consent was obtained, she was taken to the operating room. After adequate anesthesia, she was placed on the operating room table. All downside pressure points Electronically Signed By: JACKI BROWN MD 09/06/22 1254 PATIENT NAME: SHERICE GARZA OPERATIVE REPORT DATE OF : 46 REPORT #: [id number] PHYSICIAN: JACKI BROWN MD PCP: PEREZ MANUEL MD REPORT IS CONFIDENTIAL AND NOT TO BE RELEASED WITHOUT AUTHORIZATION [facility] [address], [place] [address] Signed were well padded. The knee was prepped and draped in a standard sterile fashion and the prior incision was opened up after removal of the linda. The patellar tendon avulsion off the tibia was immediately noted. This was not a transverse, but a complete avulsion all the way distally. The MCL was noted to be completely torn to laterally, she was intact and stable. PCL was stable. The blood clot and hematoma were then copiously irrigated and removed using rongeurs and irrigation suction. Once the soft tissue was clearly identified, the decision was made to repair the MCL 1st. We placed three 55 anchors along the top of the tibia just below the implant. These were placed in such a way that they did not strike the implant deep. The sutures were then placed through the tendon at the meniscal margin in an inverted mattress configuration. While pulling the tendon distally and holding the knee in valgus, we then tied these sutures down tight. They were then brought in a crisscross fashion or double row fashion down to anchors distally. We did do an end-to-end anastomosis of the MCL as well. The attention was then turned to the patellar tendon. Three anchors were placed in the anterior portion of the tibia and the sutures were again passed through the tendon and tied in an inverted mattress configuration. The tendon end was brought down and then repaired using #1 Vicryl. The suture ends from the proximal sutures were then again placed through anchors distally in a double row technique. Once this was accomplished, the retinacular tears and capsular rents were closed using a combination of #2 FiberWire and #2 Stratafix. At the end of the procedure, we were able to bend the knee to 90 degrees with no motion at the patellar tendon repair site. The MCL was good and tight. Once this was accomplished, the wound was again copiously irrigated with Surgiphor. It should also be noted that prior to closure of the capsule, we did irrigate the inside of the knee with Surgiphor followed by normal saline. Once all this was completed, the subcutaneous tissue was closed using 0 Stratafix and skin with 2-0 nylon. The wound was dressed with Allevyn and a bulky Limon dressing. She tolerated the procedure well. All sponge, needle and instrument counts were correct. Jacki Brown MD BA/MODL /[id number] Electronically Signed By: JACKI BROWN MD 09/06/22 1254 PATIENT NAME: SHERICE GARZA OPERATIVE REPORT DATE OF : 46 REPORT #: [id number] PHYSICIAN: JACKI BROWN MD PCP: PEREZ MANUEL MD REPORT IS CONFIDENTIAL AND NOT TO BE RELEASED WITHOUT AUTHORIZATION [address] [address] Signed Copies: ~ Electronically Signed By: JACKI BROWN MD 09/06/22 1254 PATIENT NAME: SHERICE GARZA OPERATIVE REPORT DATE OF : 46 REPORT #: [id number] PHYSICIAN: JACKI BROWN MD PCP: PEREZ MANUEL MD REPORT IS CONFIDENTIAL AND NOT TO BE RELEASED WITHOUT AUTHORIZATION
--- NOTE | 2022-09-06 14:45 | NUR ---
ASSISTED PHYSICAL THERAPY IN MOVEMENTS. CYRO CHANGED, PUREWICK PLACED. NEW LINEN/INCONT PADS. REFILLED WATER/ICE, VITALS/I&O'S TAKEN/DOCUMENTED. CALL LIGHT IN REACH. FRIEND IN ROOM. NO OTHER NEEDS AT THIS TIME.
--- NOTE | 2022-09-06 15:53 | NUR ---
OXYCODONE 10MG PO ADMIN FOR REPORTS OF 4/10 RIGHT KNEE PAIN.
--- NOTE | 2022-09-06 17:02 | NUR ---
SPOKE TO PATIENT ABOUT THE DISCHARGE PLAN. PATIENT WOULD LIKE TO GO TO [facility] WHEN MEDICALLY STABLE. [facility] UPATED AND HAS A BED AVAILABLE FOR 2PM FRIDAY. WILL FOLLOW-UP WITH LEE MAGAÑA WHAT KIND OF PATIENT TRANSPORT SHOLUD BE USED, WHEEL VAN VS VIOLETA FIRE.
--- NOTE | 2022-09-06 17:41 | NUR ---
Called Dr. Brown to clarify orders. TORB from Dr. Brown for TTWB status to RLE, no leg brace to RLE and patient is ok to have a pure wick.
--- NOTE | 2022-09-06 21:36 | NUR ---
PT CALLING OUT "HELP ME" FROM ROOM. ENTERED ROOM, PT LAYING IN BED AND REQUESTING FOOD. VANILLA SUGAR FREE PUDDING PROVIDED. NO FURTHER NEEDS. CALL LIGHT IN REACH.
--- NOTE | 2022-09-06 22:00 | NUR ---
Called Dr. Brown as pt is unable to sleep, got orders for Benumerrly 25.
[2022-09-07 02:05] VITALS: BP 104/52
[2022-09-07 05:37] VITALS: BP 99/48
--- NOTE | 2022-09-07 07:07 | NUR ---
REPORT FROM Anika VAIL RN. PATIENT RESTING IN BED WITH EYES CLOSED. ALLOWED TO REST AT THIS TIME. CALL LIGHT IN REACH.
--- NOTE | 2022-09-07 09:55 | NUR ---
2 PERSON ASSIST FROM BED TO BSC, CONTINENT OF URINE. PATIENT THEN PIVOTS WITH WALKER, 2 PERSON ASSIST TO RECLINER, LEGS ELEVATED. BRACE TO RIGHT KNEE WITH MOVEMENT AND LEFT IN PLACE. CRYOCUFF REPLACED TO RIGHT KNEE WHILE UP IN RECLINER. AM MEDICATIONS ADMINISTERED, TAKES WITHOUT DIFFICULTY. MULTIPLE VISITORS IN ROOM AT THIS TIME. FRESH WATER PROVIDED. DENIES OTHER NEEDS AT THIS TIME. CALL LIGHT IN REACH.
[2022-09-07 10:54] VITALS: BP 98/55
--- NOTE | 2022-09-07 11:10 | NUR ---
PT WORKING WITH PT.
--- NOTE | 2022-09-07 11:42 | NUR ---
SITTING UP IN CHAIR, VISITING WITH FRIEND. DENIES NEEDS AT THIS TIME. CALL LIGHT IN REACH.
[2022-09-07 13:32] VITALS: BP 114/53
[2022-09-07 18:14] VITALS: BP 104/45
[2022-09-07 19:25] VITALS: BP 118/77
--- NOTE | 2022-09-08 05:06 | NUR ---
Pt feels slightly more painful as its day 2 post op. Oxy and tylenol help her pain. Neuro's intact on all extremities. Sat at bedside. Used purwich overnight. Benadryl helped pt sleep. overall good progress.
[2022-09-08 05:14] VITALS: BP 108/50
--- NOTE | 2022-09-08 07:00 | NUR ---
REPORT FROM Anika VAIL RN. PATIENT RESTING IN BED WITH EYES CLOSED. RESPIRATIONS EVEN AND UNLABORED. CALL LIGHT IN REACH, BED RAILS UP X2. ALLOWED TO REST AT THIS TIME.
[2022-09-08 09:38] VITALS: BP 102/60
--- NOTE | 2022-09-08 10:08 | NUR ---
DR. HOWARD IN TO CHANGE RIGHT LEG DRESSING. INCISION INTACT WITH SUTURES, INCISION COVERED WITH 3 ALLEVYN, 2 ABD PADS AND 1 ROLL OF SANTOSH WRAP. PATIENT TOLERATED WELL, CRYO CUFF PLACED TO RIGHT KNEE.
[2022-09-08 13:36] VITALS: BP 102/57
[2022-09-08 17:45] VITALS: BP 126/55
[2022-09-08 20:23] VITALS: BP 107/55
--- NOTE | 2022-09-08 20:25 | NUR ---
PT ASSESSED. Q4 NEURO CHECK DONE. PT'S NUMBNESS IS ALMOST GONE, NO TINGLEING NOTED. PT'S ONLY COMPLAINT IS A HEADACHE THAT IS GETTING PROGRSSIVELY WORSE. DR. TRACEY NOTIFIED AND DOCTOR ORDERED SOMETHING FOR THE HEADACHE. WILL CONTINUE TO MONITOR HEADACHE. PT'S FAMILY VISITING. SAEFTY PRECAUTIONS MAINTAINED. CALL LIGHT WITHIN REACH. WILL CONTINUE TO MONITOR.
--- NOTE | 2022-09-08 20:35 | NUR ---
PT ASSESSED AND MEDICATIONS GIVEN. PT STATED THAT PAIN WAS MANAGEABLE AT THE MOMENT AND THEY DID NOT WANT ANYTHING FOR PAIN. RIGHT KNEE DRSG CDI. VSS. SAFETY PRECAUTIONS MAINTAINED. CALL LIGHT WITHIN REACH. WILL CONTINUE TO MONITOR.
--- NOTE | 2022-09-09 01:10 | NUR ---
CALL LIGHT ANSWERED. PATIENT BRUSHED HER TEETH AND WASHED HER FACE. NO OTHER NEEDS AT THIS TIME. WHITE BOARD UPDATED.
[2022-09-09 06:16] VITALS: BP 103/46
--- NOTE | 2022-09-09 06:19 | NUR ---
PT RESTED WELL THROUGHOUT THE SHIFT. PT GOT UP TO BSC ONCE AND HAD A BM AND VOIDED. VSS. OXYCODONE GIVEN ONCE FOR PAIN. SAFETY PRECAUTIONS MAINTAINED. CALL LIGHT WITHIN REACH. WILL CONTINUE TO MONITOR.
--- NOTE | 2022-09-09 07:32 | NUR ---
PATIENT RESTING IN BED. BEDSIDE REPORT FROM CONNIE MAHAJAN. PATIENT APPEARS CALM. NO OTHER NEEDS AT THIS TIME.
--- NOTE | 2022-09-09 08:08 | NUR ---
THIS FRONT OFFICE SECRETARY HAS TAKEN OVER CARES FOR THIS PT FROM [facility] OPERATOR FRONT OFFICE SECRETARY. PT IS RESTING IN BED WITH EYES CLOSED. CALL LIGHT WITHIN REACH.
[2022-09-09 09:32] VITALS: BP 128/66
--- NOTE | 2022-09-09 10:55 | NUR ---
PATIENT SITTING UP IN RECLINER APPEARS COMFORTABLE. KNEE BRACE ON. PATIENT REPORTS PAIN WELL CONTROLLED AND TOLERATING WELL.
--- NOTE | 2022-09-09 11:05 | NUR ---
SPOKE TO PATIENT ABOUT THE DISCHARGE PLAN. PATIENT PLANS TO GO TO [facility] TODAY VIA AMBULANCE. PATIENT STATES THE CARE HAS BEEN GREAT AT THE HOSPITAL.
--- NOTE | 2022-09-09 12:59 | NUR ---
PATIENT SITTING UP IN RECLINER GOING THROUGH PERSONAL BELONGINGS, GETTING READY FOR TRANSFER TO [place]. ADMINISTERED PAIN MEDICATION. PATIENT RATES PAIN 3/10 ON PAIN SCALE. PATIENT REPORTS TOLERABLE.
--- NOTE | 2022-09-09 13:24 | NUR ---
PT SITTING IN CHAIR. [facility] I EXERCISED MINSTRY OF PRESENCE PT TALKED OF 'S IMPROVED ABILITY AT HOME. OPTIMISTIC THAT HE [facility] WILL PROVIDE OPPORTUNITY FOR HIM TO REALIZE EXTENT OF ABILITY. CONSENTED TO PRAYER. PRAYED FOR SMOOTH TRANSITIONS AND ONGOING HEALING.
[2022-09-09 14:06] VITALS: BP 104/50
--- NOTE | 2022-09-09 14:17 | NUR ---
REPORT TO LESLEE MAHAJAN AT [facility]. ANSWERED QUESTIONS AND CONCERNS. PLAN FOR EMS TO TRANSFER PATIENT AT 1500.
--- NOTE | 2022-09-09 15:11 | NUR ---
PATIENT LEFT WITH EMS AT 1500. FRIEND FELIPE TOOK ALL PATIENT BELONGINGS TO [facility]. REMOVED PERSONAL MEDICATIONS AND BELONGINGS FROM LOCK BOX IN ROOM. PATIENT THEN PUT THEM IN HER BELONGING BAG. PATIENT LEFT WITH HER PURSE AND WALKER.
== END 2022-09-09 15:00 | DRG 502 ==
LOC: ED 19:57 → MS 19:58
PROVIDERS: Internal Medicine; ADMIT Specialist; ATTEND Specialist
PROC: 0LQQ0ZZ Repair Right Knee Tendon, Open Approach (ICD-10-PCS; principal; 2022-09-06 07:00)
DX: T84.89XA Other specified complication of internal orthopedic prosthetic devices, implants and grafts, initial encounter (principal); S83.411A Sprain of medial collateral ligament of right knee, initial encounter; S86.812A Strain of other muscle(s) and tendon(s) at lower leg level, left leg, initial encounter; M48.061 Spinal stenosis, lumbar region without neurogenic claudication; M48.07 Spinal stenosis, lumbosacral region; M47.816 Spondylosis without myelopathy or radiculopathy, lumbar region; Z96.651 Presence of right artificial knee joint; Z88.0 Allergy status to penicillin; Z88.1 Allergy status to other antibiotic agents
CPT/HCPCS: 01470; 36415; 64447; 72157; 72158; 73560; 76942; 80053; 81003; 85025; 85610; 94762; 97110; 97116; 97161; 97164; 97530; 99285-25; A9270; A9577; C1713; G0378; J0690; J1100; J1885; J2405; J2704; J2795; J7121; J7509

== ENCOUNTER 2023-09-11 17:58 | Emergency (ER) | payer MEDICARE, OTHER ==
[~2023-09-11] VITALS: Ht 167.6 cm; Wt 116.8 kg
[~2023-09-11 17:58] MED LIST changes: +CYCLOSPORINE1 EACH OU; +OXYBUTYNIN CHLO15 MG PO; +ROSUVASTATIN CAL5 MG PO
[2023-09-11] MEDS ORDERED: HYDROCODON-ACE1 EA10 PO (18:21)
[2023-09-11] MEDS ORDERED: PERCOCET 5-3251 EACH PO (18:25)
[2023-09-11] MEDS ORDERED: OXYCODONE/APAP 5/325 TAB PO ONE (18:30)
[2023-09-11] MEDS ORDERED: IBUPROFEN 400 MG TAB PO ONE (18:30)
[2023-09-11] MEDS ORDERED: HYDROCODONE/ACETA 5/325 TAB PO ONE (18:30)
[2023-09-11 18:50] VITALS: BP 118/66
== END 2023-09-11 18:50 | disposition short-term general hospital (02) ==
LOC: ED 17:58
DX: M25.511 Pain in right shoulder (principal); Z79.899 Other long term (current) drug therapy; Z88.0 Allergy status to penicillin; Z88.1 Allergy status to other antibiotic agents
CPT/HCPCS: 99283; A9270

== ENCOUNTER 2024-03-04 12:54 | Emergency (ER) | payer MEDICARE, OTHER ==
[~2024-03-04] VITALS: Ht 167.6 cm; Wt 119.3 kg
[~2024-03-04 12:54] MED LIST changes: +HYDROCODON-ACE1 EA10 PO; +PERCOCET 5-3251 EACH PO
[2024-03-04 13:48] LABS: BASOPHILS 0.8 % (0-2); EOSINOPHILS 1.2 % (0-6); HEMATOCRIT 38.8 % (35.0-50.0); HEMOGLOBIN 12.7 g/dL (12.0-18.0); LYMPHOCYTES 26.5 % (24-44); MCH 28.2 (27-36); MCHC 32.6 g/dl (30-36); MCV 86.4 fl (81-99); MONOCYTES 9.8 % (0-12); NEUTROPHILS 61.7 % (39-80); PLATELET COUNT 105 K/uL (140-440); RBC 4.49 M/ul (4.3-5.7); RDW 15.1 (10.5-15.0)
[2024-03-04 13:57] LABS: BILIRUBIN, URINE NEGATIVE (negative); BLOOD/HGB, URINE NEGATIVE (Negative); KETONE, URINE NEGATIVE (Negative); LEUK ESTERASE, URINE SMALL (negative); NITRITE, URINE POSITIVE (negative)
[2024-03-04 14:05] LABS: ALBUMIN 3.4 g/dL (3.4-5.0); ALBUMIN/GLOBULIN RATIO 1.06 (1.1-2.4); ANION GAP 13.7 (7-21); BILIRUBIN, TOTAL 0.6 ng/dL (0.2-1.0); CREATININE, SERUM 0.68 mg/dL (0.55-1.02); POTASSIUM 4.7 mmol/L (3.5-5.1); PROTEIN, TOTAL 6.6 g/dL (6.4-8.2)
[2024-03-04] MEDS ORDERED: ACETAMINOPHEN 500 MG TAB PO ONE (14:15)
[2024-03-04] MEDS ORDERED: IBUPROFEN 600 MG TAB PO ONE (14:15)
[2024-03-04 14:18] LABS: BACTERIA, URINE 2+ /hpf (negative); CASTS, URINE NONE SEEN \\lpf; CRYSTALS, URINE NONE SEEN (0-1+); EPITHELIAL CELLS, URINE SQUAMOUS 1+ /lpf (0-1+); REFLEX CULTURE, URINE Yes (No)
[2024-03-04 14:19] LABS: COLLECTION TYPE, URINE CLEAN CATCH
[2024-03-04] MEDS ORDERED: CEPHALEXIN500 M1 PO (15:56)
[2024-03-04 16:00] VITALS: BP 118/78
[2024-03-04] MEDS ORDERED: CEPHALEXIN MONOHYDRATE 500 MG CAP PO ONE (16:00)
== END 2024-03-04 16:00 | disposition home or self-care (01) ==
LOC: ED 12:54
PROVIDERS: Emergency Medicine
DX: R42 Dizziness and giddiness (principal); N39.0 Urinary tract infection, site not specified; E78.5 Hyperlipidemia, unspecified; M19.90 Unspecified osteoarthritis, unspecified site; Z88.0 Allergy status to penicillin; Z88.1 Allergy status to other antibiotic agents; Z79.899 Other long term (current) drug therapy
CPT/HCPCS: 36415; 70450; 70496; 70498; 80053; 81001; 85025; 87077; 87088; 87186; 99284-25; A9270; Q9967

== ENCOUNTER 2024-07-07 10:10 | Day surgery (SDC) | payer MEDICARE, OTHER ==
[2024-07-01 09:36] VITALS: BP 123/64
[~2024-07-07] VITALS: Ht 167.6 cm; Wt 111.4 kg
[~2024-07-07 10:10] MED LIST changes: +CALCIPOTRIENE60 G3 TOP; +CEPHALEXIN500 M1 PO; +IBLOOD GLUCOSE TEST STRIP 1 EA TEST VI PRN; +LACTATED RINGER'S 1,000 ML IV SCH; +LIDOCAINE HCL 1% 5 ML SDV INJ ONE; +MIDAZOLAM HCL 5 MG/5 ML VIAL IV PRN; +fentaNYL citrate 100 MCG/2 ML VIAL IV PRN
[2024-07-07 10:58] VITALS: BP 120/46
[2024-07-07 10:59] LABS: BASOPHILS 0.5 % (0.1-1.2); BASOPHILS, ABSOLUTE 0.02 K/uL (0.01-0.08); EOSINOPHILS 1.2 % (0.7-5.8); EOSINOPHILS, ABSOLUTE 0.05 K/uL (0.04-0.36); HEMATOCRIT 39.7 % (34.1-44.9); HEMOGLOBIN 12.6 g/dL (11.2-15.7); LYMPHOCYTES 28.2 % (19.3-51.7); LYMPHOCYTES, ABSOLUTE 1.16 K/uL (1.18-3.74); MCH 26.9 PG (25.6-32.2); MCHC 31.7 g/dL (32.2-35.5); MCV 84.6 fL (79.4-94.8); MONOCYTES 9.7 % (4.7-12.5); NEUTROPHILS 60.2 % (34.0-71.1); NEUTROPHILS, ABSOLUTE 2.48 K/uL (1.56-6.13); PLATELET COUNT 117 K/uL (182-369); RBC 4.69 M/uL (3.93-5.22)
[2024-07-07 11:19] LABS: ALBUMIN 3.8 g/dL (3.4-5.0); ALBUMIN/GLOBULIN RATIO 1.23 (1.1-2.4); BILIRUBIN, TOTAL 0.6 mg/dL (0.2-1.0); BUN/CREATININE RATIO 32.3 (6.0-28.6); CALCIUM 9.5 mg/dL (8.5-10.1); CREATININE, SERUM 0.65 mg/dL (0.55-1.02); PROTEIN, TOTAL 6.9 g/dL (6.4-8.2)
[2024-07-07] MEDS ORDERED: propofoL 200 MG/20 ML VIAL ONE (11:47)
[2024-07-07] MEDS ORDERED: LIDOCAINE HCL 2% 5 ML SDV ONE (11:47)
--- NOTE | 2024-07-07 12:31 | NUR ---
07/07/24 1231 Suzi Dean 1220-PATIENT ARRIVED TO PACU ON 6L NC RR EVEN. PATIENT LAYING PRONE REACTIVE TO VERBAL STIMULI ORIENTED TO PACU. 2 INCISION SITES TO LOWER BACK CDI. SR HR 60'S. 1228-PATIENT SLEEPING PLACED ON 2L NC RR EVEN LAYING PRONE. SR HR 60'S IVF INFUSING
[2024-07-07 12:57] VITALS: BP 121/83
[2024-07-08 04:24] LABS: BETA-2-MICROGLOBULIN,SER/PLAS 2.4 mg/L (<=3.0)
[2024-07-08 12:02] LABS: IMMUNOGLOBULIN A 367 mg/dL (68-408); IMMUNOGLOBULIN G 611 mg/dL (768-1632); IMMUNOGLOBULIN M 46 mg/dL (35-263); KAPPA QNT FREE LIGHT CHAINS 37.39 mg/L (3.30-19.40); KAPPA/LAMBDA FREE LIGHT CH RAT 3.71 (0.26-1.65); LAMBDA QNT FREE LIGHT CHAINS 10.07 mg/L (5.71-26.30)
[2024-07-10 10:00] LABS: IMMUNOGLOBULIN A 370 mg/dL (68-408); IMMUNOGLOBULIN G 639 mg/dL (768-1632); IMMUNOGLOBULIN M 38 mg/dL (35-263)
[2024-07-10 11:18] LABS: ALBUMIN 3.98 g/dL (3.75-5.01); ALPHA 1 GLOBULIN 0.29 g/dL (0.19-0.46); GAMMA 0.83 g/dL (0.62-1.51); IMMUNOFIXATION REFLEX IFE Done (()); TOTAL PROTEIN,SERUM 6.5 g/dL (6.3-8.2)
--- NOTE | 2024-07-15 15:40 | PATH ---
[facility] [address] [place] [address] Signed SPECIMEN(S): A BONE MARROW - LEFT CORE SPECIMEN(S): B BONE MARROW - ASPIRATION SPECIMEN(S): C FLOW CYTOMETRY, BM EDTA SPECIMEN SOURCE: D. FISH Analysis, MM FISH, BM HEP FISH (fluorescence in situ hybridization) RESULT: Detected INTERPRETATION: 1q gain: Not detected 1p deletion: Not detected Chromosome 5, 9, or 15 gain: Detected 13q deletion: Detected 17p (p53) deletion: Not detected, Other abnormality observed, See below CCND1/IGH rearrangement t(11;14): Not detected Fluorescence in situ hybridization (FISH) analysis was performed using a multiple myeloma specific set of probes. Plasma cell enrichment was performed unless otherwise noted. This study revealed a gain of chromosome 5 (3A, 68%, normal < 4.6%), gain of chromosome 9 (3G, 74%, normal < 4.6%), gain of chromosome 15 (3R, 67%, normal < 4.6%), a gain of chromosome 17 (3R3G, 74%, normal < 3.0%), and a deletion of 13q or monosomy of chromosome 13 (1R1G, 70%, normal < 7.4%). The other analysis fell within normal limits for this sample type. This finding represents an ABNORMAL result. There is no evidence for deletion of 17p or aneuploidy of chromosome 1q (CKS1B) in this specimen. The loss of the tumor suppressor genes at 13q is a recurrent finding in multiple myeloma patients. Hyperdiploid cell clones are recurrent findings in patients with Multiple Myeloma which constitute a unique genetic subtype of MM associated with improved outcome with distinct clinical features. The most commonly gained chromosomes are 3, 5, 7, 9, 11, 15 and 19. Chromosomal hyperdiploidy is the defining genetic signature in 40-50% of myeloma (MM) patients. Please correlate with clinical and pathologic findings for full assessment. This analysis is not quantitative. Results obtained using CD138+ plasma cells are NOT hospital sales representative of the percentage of abnormal plasma cells in the aspirate. This analysis is limited to abnormalities detectable by the specific probes included in the study. FISH results should be interpreted within the context of a full cytogenetic analysis and hematologic evaluation. PATIENT NAME: SHERICE GARZA PATHOLOGY DATE OF : 46 REPORT #: [id number] PHYSICIAN: MEREDITH ALEXIS PCP: PEREZ MANUEL MD REPORT IS CONFIDENTIAL AND NOT TO BE RELEASED WITHOUT AUTHORIZATION [facility] [address], [place] [address] Signed ISCN: Probe Set Detail: Chromosome 1: nuc shayan 1p32.3 (YPQR2Tr3),1q21.3(LEG2Rj5)[100] Chromosome 5: nuc shayan 5p12(CEP5x3)[68/100] Chromosome 9: nuc shayan 9p13.1p13.2(CEP9x3)[74/100] Chromosome 15: nuc shayan 15q11.2(INT52w6)[67/100] Chromosome 13: nuc shayan 13q14(G70P361u4),13q34(UJNQ8q3)[70/100] Chromosome 17: nuc shayan 17p13.1(TP53x3),17p11.2(TEM41i6)[74/100] CCND1/IGH t(11;14): nuc shayan 11q13(KHXU5t5),14q32(IGHx2)[100] References: Maxwell WJ, Darcie A, et al; International Myeloma Working Group. IMWG consensus on risk stratification in multiple myeloma. Leukemia. 2014;28(2):269-77. Courtney R, Jolie PL, Christian J, Tam J, Bob N, Ernesto AK, Will G, Tre B, Thiago M, Radha S, Ethan A, Ruthann B, Jennifer WM, Kelly P, Aníbal F, Jamie S, Telma BG, Jose R, Lorraine O, Reursula T, Kiersten L, Nkechi H; International Myeloma Working Group. International Myeloma Working Group molecular classification of multiple myeloma: spotlight review. Leukemia. 2009 Dec;23(12):2210-21. doi: 10.1038/carey.2009.174. Epub 2008Nov 10. PMID: 99588890; PMCID: [id number]. FISH Analysis Summary: Nuclei Scored: 100 Scoring Method: Manual; CPT Code 34327 Number of Probe units: 5 Multiplex Cells analyzed: Interphase Probe sets: 13q-/-13, 1p32.3/1q21, 5p12/9p13/15q11, TP53 (17p13.1)/ CEP 17 (17p11), IGH (14q32)/CCND1 (11q13.3) FINAL DIAGNOSIS OF FISH STUDY PERFORMED BY: Gigi Maya MD, Pathologist Jul 14 2024 8:49PM CLINICAL HISTORY: 74 years old female. Positive SPEP and thrombocytopenia DIAGNOSIS SUMMARY: Peripheral blood - Mild thrombocytopenia with no platelet clumping. - No circulating blasts or plasma cells are identified. Bone marrow biopsy and aspiration: - Normocellular marrow, 25%, with less than 1% blasts. - 3% kappa restricted plasma cells consistent with a plasma cell neoplasm, PATIENT NAME: SHERICE GARZA PATHOLOGY DATE OF : 46 REPORT #: [id number] PHYSICIAN: MEREDITH ALEXIS PCP: PEREZ MANUEL MD REPORT IS CONFIDENTIAL AND NOT TO BE RELEASED WITHOUT AUTHORIZATION [facility] [address], [place] [address] Signed favor MGUS. - Trilineage hematopoiesis with no significant dyspoiesis. - Congo Red stain for amyloid is negative. - Decreased marrow iron stores by Prussian Blue staining. - See diagnostic comment. DIAGNOSTIC COMMENT: 3% kappa restricted B-cells are noted consistent with a plasma cell neoplasm. A MGUS is favored, but correlation with clinical, laboratory, and imaging findings is required for accurate classification. A FISH panel for myeloma is hyperdiploid. A history of chronic mild thrombocytopenia is noted. Megakaryocytes appear mildly decreased in numbers but with a normal morphology. Features diagnostic of ITP are not identified. Pending studies at the time of this report include chromosome analysis. The results will be reported via addendum. HISTORICAL SUMMARY: 74 yo female with no prior hematology case history in the [employer] database, presents for evaluation of thrombocytopenia (apparently dating back to 2015) and a positive SPEP. A clinical history of potential ITP is noted. PERIPHERAL BLOOD: HEMOGRAM (07/07/2024): WBC 4.12 K/ul, RBC 4.69 M/ul, HGB 12.6 g/dl, HCT 39.7%, MCV 84.6 fl, MCH 26.9 pg, MCHC 31.7 g/dl, RDW 14.5%, PLT 117 K/ul. AUTOMATED DIFFERENTIAL COUNT: Neutrophils 60.2%, lymphocytes 28.2%, monocytes 9.7%, eosinophils 1.2%, basophils 0.5%. The red blood cells are normocytic and normochromic with minimal aniso-poikilocytosis. The neutrophils are unremarkable. Lymphocytes are composed of small mature appearing forms. Platelets appear mildly decreased in number with no platelet clumping or RBC microangiopathic effect identified. No blasts are identified. BONE MARROW: ASPIRATE SMEARS/TOUCH IMPRINT: The aspirate smears are adequate for evaluation. Scattered erythroid precursors show adequate maturation with essentially normal morphology. The myeloid precursors show full maturation with unremarkable morphology. There is no increase in blasts. Plasma cells are mildly increased with an essentially normal morphology. Megakaryocytes are identified with a normal morphology. PATIENT NAME: SHERICE GARZA PATHOLOGY DATE OF : 46 REPORT #: [id number] PHYSICIAN: MEREDITH ALEXIS PCP: PEREZ MANUEL MD REPORT IS CONFIDENTIAL AND NOT TO BE RELEASED WITHOUT AUTHORIZATION [facility] [address], [place] [address] Signed BONE MARROW DIFFERENTIAL COUNT (300 cells): Blasts less than 1%. promyelocytes less than 1%, myelocytes 2%, metamyelocytes/bands/segs 38%, erythroid precursors 31%, lymphocytes 16%, monocytes 6%, eosinophils 3%, plasma cells 4%. M:E ratio: 1.4:1 BONE MARROW CORE BIOPSY/ASPIRATE CLOT/CELL BLOCK: The aspirate clot section and the core biopsy are adequate for evaluation. The core biopsy demonstrates unremarkable trabecular bone. The cellularity is normal for age, estimated at 25%. The erythroid precursors are within normal limits with essentially unremarkable maturation. The myeloid precursors are unremarkable with no significant dyspoiesis. Blasts are not increased. Megakaryocytes appear normal in number and in morphology. Plasma cells are mildly increased with no nodularity. No granulomas, atypical lymphoid aggregates or foreign malignant cells are detected. SPECIAL STAINS (with adequate controls): - iron (aspirate smear): Decreased marrow iron stores by Prussian Blue staining. - iron (cell block): Negative for iron by Prussian Blue staining. - PAS (block A1): Normal number of megakaryocytes with a normal morphology. - Congo Red for amyloid (block A1): Negative for amyloid. IMMUNOHISTOCHEMISTRY STAINS (performed on block A1 with adequate controls). - CD138: 3% - SHAYAN [place] and Lambda: Favor kappa light chain restriction. - CD71: 30% FLOW CYTOMETRY: Bone marrow, flow cytometry: - 1.4% kappa restricted plasma cells consistent with a plasma cell neoplasm. - See comment. COMMENT: 1.4% kappa restricted plasma cells are detected. These plasma cells are positive for CD56 and negative for CD19, CD20, and CD117. This finding is consistent with a plasma cell neoplasm. Correlation with imaging, laboratory, and clinical findings is needed for subclassification of the plasma cell neoplasm. The myeloid cells are unremarkable. The monocytic gate has mild non-specific increased expression of CD15 and CD56. Blasts are not increased. No clonal lymphoid population is detected. FLOW CYTOMETRY ANALYSIS: FLOW DIFFERENTIAL (% Total CD45 vs. SSC gating): Myeloid 66%; Lymphoid 12%; Monocyte 3%; Dim CD45/Blast 0.8%; PATIENT NAME: SHERICE GARZA PATHOLOGY DATE OF : 46 REPORT #: [id number] PHYSICIAN: MEREDITH PATHOLOGY PCP: PEREZ MANUEL MD REPORT IS CONFIDENTIAL AND NOT TO BE RELEASED WITHOUT AUTHORIZATION [facility] [address] [place] [address] Signed Plasma Cells 1.4%. Cell Count: 5.0 x 10*3/uL. POPULATION ANALYSIS: BLASTS: Analysis of the dim CD45 gate demonstrates 0.8% myeloblasts by CD34/CD117 and 1.1% hematogones. LYMPHOID CELLS: The lymphocyte gate comprises 12% of total events and includes 80% T-cells with a CD4:CD8 ratio of 2.9:1 and normal hidalgo T-cell antigen expression. 15% of lymphocytes are B-cells with a kappa:lambda ratio of 1.9:1. The remainders are NK cells. MYELOID CELLS: The myeloid population comprises 66% of the total events. No aberrant immunophenotypic expression is detected. MONOCYTES: The monocyte population comprises 3% of the total events. Some increased CD15 and CD56 expression is observed. PLASMA CELLS: There is a noted clinical concern for myeloma. For this reason, select additional antibodies are run to further characterize the plasma cells. 1.4% ckappa-restricted plasma cells are detected (n=698) expressing CD45 DIM-NEG, CD38 BR, CD138 MOD, CD56 MOD and cKAPPA BR while negative for CD19, CD20 and CD117. Initial Antibodies Used: KAPPA, LAMBDA, CD20, CD10, CD19, CD23, CD38, CD16, CD56, CD8, CD5, CD2, CD4, CD7, CD3, CD14, CD33, CD13, HLADR, CD34, CD117, CD15, CD45. Additional Antibodies (necessary for further plasma cell analysis): ckappa, clambda, CD138. Total Antibodies Used: 26. DKW FINAL DIAGNOSIS PERFORMED BY: Marty Brizuela MD, Jul 08 2024 9:58AM CYTOGENETICS: Chromosome analysis is pending. GROSS DESCRIPTION: Two specimens are received in two containers A. The specimen, labeled and designated "[place], bone marrow core biopsy," is received in formalin and consists of by After decalcification in Immunocal the specimen is entirely submitted in (A1). B. The specimen, labeled and designated "[place], bone marrow clot," is received in formalin and consists of a si2.1 x 1.8 x 0.2 cm aggregate of red brown clot material. Entirely submitted in (B1). JS (under the direct supervision of a pathologist) The Gross Description was prepared using a voice recognition system. The report was reviewed for accuracy; however, sound-alike word errors, addition and/or PATIENT NAME: SHERICE GARZA PATHOLOGY DATE OF : 46 REPORT #: [id number] PHYSICIAN: MEREDITH ALEXIS PCP: PEREZ MANUEL MD REPORT IS CONFIDENTIAL AND NOT TO BE RELEASED WITHOUT AUTHORIZATION [address] [address] Signed deletions may occur. If there is any question about this report, please contact Client Services. ADDITIONAL NOTES: Immunohistochemical and/or in situ hybridization studies if performed in this case included appropriate positive controls that reacted as expected. This test was developed and its performance characteristics determined by [facility]. It has not been cleared or approved by the U.S. Food and Drug Administration. The FDA has determined that such clearance or approval is not necessary. This test is used for clinical purposes. It should not be regarded as investigational or for research. [facility] is certified under the Clinical Laboratory Improvement Amendments of 1988 (CLIA) as qualified to perform high complexity clinical laboratory testing. In this case, certain antibodies were performed by both immunohistochemistry and flow cytometry analysis because flow cytometry analysis did not fully explain all the light microscopic findings. Immunohistochemistry aided in the analysis. Both methods are deemed medically necessary in this case. This test was developed and its performance characteristics determined by [facility]. It has not been cleared or approved by the US Food and Drug Administration. The FDA does not require this test to go through premarket FDA review. This test is used for clinical purposes. It should not be regarded as investigational or for research. This laboratory is certified under the Clinical Laboratory Improvement Amendments (CLIA) as qualified to perform high complexity clinical laboratory testing. This test was developed and its performance characteristics determined by [facility]� It has not been cleared or approved by the US Food and Drug Administration. The [employer] probe vendor for this study was [employer]. PERFORMING LABORATORY: The technical component of the FISH testing was performed by [facility], [address] [place] [address] (CLIA#:� [id number]). Professional interpretation was performed by [facility], [facility] [place] [address] (CLIA#: [id number]). The technical preparation was performed by [facility], [facility] [place] [address] (CLIA#:� [id number]). Professional PATIENT NAME: SHERICE GARZA PATHOLOGY DATE OF : 46 REPORT #: [id number] PHYSICIAN: MEREDITH ALEXIS PCP: PEREZ MANUEL MD REPORT IS CONFIDENTIAL AND NOT TO BE RELEASED WITHOUT AUTHORIZATION [address] [address] Signed interpretation was performed by [facility] [address] [id number] (CLIA#: [id number]). Technical component was performed by [facility], [address] [place] [address] (CLIA# [id number]). Professional interpretation was performed by [facility], [address] [place] [id number] (CLIA#: [id number]). IMAGES: A: [id number]: [id number] D: 3R3G [id number] D: 1R1G [id number] D: 3R3G3A [id number] Diagnostician: Marty Brizuela MD Pathologist Electronically Signed 07/15/2024 Copies: ~ PATIENT NAME: SHERICE GARZA PATHOLOGY DATE OF : 46 REPORT #: [id number] PHYSICIAN: [facility] PCP: PEREZ MANUEL MD REPORT IS CONFIDENTIAL AND NOT TO BE RELEASED WITHOUT AUTHORIZATION
== END 2024-07-07 13:00 | disposition home or self-care (01) ==
LOC: DS 10:10
PROVIDERS: ATTEND Specialist
PROC: 07DR3ZX Extraction of Iliac Bone Marrow, Percutaneous Approach, Diagnostic (ICD-10-PCS; principal; 2024-07-07 12:00)
DX: D47.2 Monoclonal gammopathy (principal); D69.6 Thrombocytopenia, unspecified; E78.5 Hyperlipidemia, unspecified; Z79.899 Other long term (current) drug therapy; Z88.0 Allergy status to penicillin; Z88.1 Allergy status to other antibiotic agents; Z91.048 Other nonmedicinal substance allergy status
CPT/HCPCS: 01112; 36415; 80053; 82232; 83615; 85025; 88184; 88185; 88305; 88311; 88313; 88341; 88342; 88364; 88365; 88377; J2003; J2704; J7121

== ENCOUNTER 2024-07-22 12:44 | Day surgery (SDC) | payer MEDICARE, OTHER ==
[~2024-07-22] VITALS: Ht 167.6 cm; Wt 110.0 kg
--- NOTE | ~2024-07-22 | OR ---
[facility] [address], [place] [address] Draft DATE OF OPERATION: 07/22/2024 SURGEON: Yared Friedman MD PREOPERATIVE DIAGNOSIS: Colon screening. POSTOPERATIVE DIAGNOSIS: Normal colon to cecum. PROCEDURE: Total colonoscopy to cecum. ANESTHESIA: Intravenous sedation fentanyl 100 mcg and Versed 4 mg. INDICATION: This 74-year-old white woman is a patient of Dr. Manuel. She has undergone colonoscopy in the past including 2000 and 2016 in [place]. She does not know if she had polyps or anything of that sort. She currently has no symptoms of bleeding, diarrhea or constipation and no family history of colon cancer. She is admitted at this time to undergo screening colonoscopy. She understands the risk of bleeding, infection, and perforation. Understanding that she wished to proceed. FINDINGS: The prep was excellent. Complete colonoscopy was undertaken of the cecum. There was no evidence of polyps or other abnormality. DESCRIPTION OF PROCEDURE: The patient was brought to the endoscopy suite and placed in lateral decubitus position, given intravenous sedation to the point of slurred speech and nystagmus. Digital rectal examination was normal. An Olympus video colonoscope was passed in the rectum and manipulated throughout the colon ultimately intubating the cecum itself. Full intubation of the cecum was accomplished. The scope was withdrawn from that point and examination throughout showed no sign of abnormality specifically no polyps, diverticular formation, colitis, or cancer. Retroflexed view of the rectum was normal as well. The scope was removed. The patient was taken to the recovery room in good condition. PATIENT NAME: SHERICE GARZA OPERATIVE REPORT DATE OF : 46 REPORT #: [id number] PHYSICIAN: YARED FRIEDMAN MD PCP: PEREZ MANUEL MD REPORT IS CONFIDENTIAL AND NOT TO BE RELEASED WITHOUT AUTHORIZATION [address] [place], [place] [address] Draft CONCLUDING DIAGNOSIS: Normal colon to cecum. PLAN: Recommend repeat colonoscopy in 10 years if clinically appropriate at that time. She will return to the ongoing care of Dr. Manuel otherwise. MD TABITHA Anne/BRADLEY /[id number] cc: Dr. Manuel Copies: ~ PATIENT NAME: SHERICE GARZA OPERATIVE REPORT DATE OF : 46 REPORT #: [id number] PHYSICIAN: YARED FRIEDMAN MD PCP: PEREZ MANUEL MD REPORT IS CONFIDENTIAL AND NOT TO BE RELEASED WITHOUT AUTHORIZATION
[~2024-07-22 12:44] MED LIST changes: +CEFAZOLIN SODIUM 2 GM/20 ML SYR IV SCH; +CO Q-1010 MG PO; +TYLENOL EXTRA500 MG PO
[2024-07-22 13:03] VITALS: BP 121/74
[2024-07-22] MEDS ORDERED: fentaNYL citrate 100 MCG/2 ML VIAL ONE (14:07)
[2024-07-22] MEDS ORDERED: MIDAZOLAM HCL 5 MG/5 ML VIAL ONE (14:08)
[2024-07-22 15:17] VITALS: BP 129/80
== END 2024-07-22 15:30 | disposition home or self-care (01) ==
LOC: DS 12:44
PROVIDERS: ATTEND Surgery
DX: Z12.11 Encounter for screening for malignant neoplasm of colon (principal); D47.2 Monoclonal gammopathy; E78.5 Hyperlipidemia, unspecified; K21.9 Gastro-esophageal reflux disease without esophagitis; G47.30 Sleep apnea, unspecified; E66.01 Morbid (severe) obesity due to excess calories; Z68.39 Body mass index [BMI] 39.0-39.9, adult; Z96.653 Presence of artificial knee joint, bilateral; Z88.0 Allergy status to penicillin; Z88.1 Allergy status to other antibiotic agents; Z79.899 Other long term (current) drug therapy
CPT/HCPCS: 99153; G0500; J0690; J2250; J3010